=== PATIENT | male | born 1955 | race Caucasian/White ===

== ENCOUNTER 2022-05-29 14:26 | Emergency (ER) | payer MEDICARE, SELFPAY ==
--- NOTE | 2022-05-29 14:36 | ED.SKABFB ---
HPI - Skin/Abscess/Foreign Bdy General Chief complaint: Skin/Abscess/Foreign Body Stated complaint: Skin Sore Time Seen by Provider: 05/29/22 14:36 Source: patient and RN notes reviewed History of Present Illness HPI narrative: Patient is a 66-year-old male who presents the urgent care with complaints of an abscess to the upper right back. Patient states its been there at least 1 week and his lady friends tried to pop it . Patient states that they were able to express drainage from the area. States that it became more painful. Denies of any fevers, nausea or vomiting. No other acute complaints. No acute distress noted. Patient read the plan of care. Some parts of this dictation were generated by voice recognition software and may contain typographical and/or grammatical inaccuracies. Related Data Home Medications Medication Instructions Recorded Confirmed alprazolam 0.5 mg tablet 0.4 mg PO Q4-6H PRN Anxiety 05/29/22 05/29/22 oxycodone-acetaminophen 10 mg-325 1 tablet PO Q6-8H PRN Pain 05/29/22 05/29/22 mg tablet sildenafil 100 mg tablet 100 mg PO DAILY PRN Sexual Activity 05/29/22 05/29/22 Allergies Allergy/AdvReac Type Severity Reaction Status Date / Time No Known Allergies Allergy Unverified 05/29/22 14:44 Review of Systems Review of Systems: CONSTITUTIONAL: Denies fever, chills, or sweats. EYES: Denies visual changes, redness, or discharge. ENT: Denies rhinorrhea, congestion, sore throat, or otalgia. CARDIOVASCULAR: Denies chest pain, palpitations, or edema. RESPIRATORY: Denies cough or dyspnea. GASTROINTESTINAL: Denies abdominal pain, nausea, vomiting, or diarrhea. GENITOURINARY: Denies dysuria or hematuria. SKIN: Reports of an abscess to the right upper back MUSCULOSKELETAL: Denies back pain, joint pain, or myalgia. NEUROLOGIC: Denies headache, numbness, or weakness. All other systems reviewed are negative, except as documented in HPI. PMFSH Comments At the time of my signature, I reviewed and agree with the nursing past medical, surgical, social, and family history. There is no relevant family history pertinent to the patient complaint. Exam Narrative: GENERAL: This is a well-nourished, well-developed patient, in no apparent distress. HEAD: normocephalic, atraumatic. EYES: PERRL. Sclera clear/white. Vision is grossly intact. EARS: External ears normal, auditory canals clear and without drainage, TMs normal without perforation. Hearing grossly intact. NOSE: External nose normal with no obvious nasal discharge, nares without redness, no rhinorrhea. THROAT: Mucous membranes moist, posterior pharynx clear. NECK: Neck supple SKIN: 4.5 x 3 cm tender erythemic edematous mildly fluctuant abscess to the right upper back NEURO: awake, alert, and oriented to person, place and time. There were no obvious focal neurologic abnormalities. EXTREMITIES: No clubbing, cyanosis, or edema. Course Course Level of Care: Express Care Visit Vital Signs Vital signs: Vital Signs Temperature 98.2 F 05/29/22 14:39 Pulse Rate 87 05/29/22 14:39 Respiratory Rate 16 05/29/22 14:39 Blood Pressure 121/89 05/29/22 14:39 Pulse Oximetry 98 05/29/22 14:39 Oxygen Delivery Room Air 05/29/22 14:39 Temperature 98.2 F 05/29/22 14:39 Pulse Rate 87 05/29/22 14:39 Respiratory Rate 16 05/29/22 14:39 Blood Pressure 121/89 05/29/22 14:39 Pulse Oximetry 98 05/29/22 14:39 Oxygen Delivery Room Air 05/29/22 14:39 Reviewed MDM - Skin/Abscess/Foreign Bdy MDM Narrative Medical decision making narrative: Advised patient to complete the oral antibiotic regimen as prescribed. Be sure to eat and drink with the medication. Use a warm compress to the area for comfort. Continue your prescription medication as needed for pain. Do not try to pick or pop the area. Follow-up with your PCP within 2 to 5 days or for worsening symptoms or failure to improve. Patient did not wish to have the abscess drained at t
[2022-05-29 14:39] VITALS: BP 121/89; PULSE 87; RESP 16; TEMP 36.8; O2SAT 98
== END 2022-05-29 14:58 | disposition home or self-care (01) ==
PROVIDERS: Emergency Provider Nurse Practitioner Family
DX: L02.212 Cutaneous abscess of back [any part, except buttock and flank] (principal); F41.9 Anxiety disorder, unspecified
CPT/HCPCS: 99203; G0463

== ENCOUNTER 2024-09-29 11:34 | Emergency (ER) | payer MEDICARE, SELFPAY ==
[2024-09-29 11:45] VITALS: BP 141/85; PULSE 72; RESP 16; TEMP 36.7; O2SAT 100
--- OUTSIDE RECORDS SUMMARY | 2024-09-29 12:03 | XMS_ITS | Clinical Summary ---
Author Organization [facility] Address [address] [place] [address] Care Team Providers Care Car Salesman Name Role Phone Ayan Tse MD Primary Care Provider + Ayan Tse MD Unavailable [phone] Kadeem Davidson LPN Unavailable Unavailable Lor Harper RN Unavailable Unavailab Luz Pope RN Unavailable Kylah vailable Allergies No known active allergies Medications naloxone (NARCAN) 4 mg/actuation spray,non-aeros olIndications:O pioid use Administer 1 spray into affected nostril(s) as needed for opioid reversal 2 each 0 Active oxyCODONE-aceta minophen (PERCOCET) 10-325 mg per tabletIndicatio ns:Pain Take 1 tablet by mouth every 8 (eight) hours as needed for pain 90 tablet 1 Active LORazepam (ATIVAN) 0.5 mg tablet Take 1 tablet (0.5 mg total) by mouth every 6 (six) hours as needed for anxiety Active sildenafiL (VIAGRA) 100 mg tablet Take 1 tablet (100 mg total) by mouth daily as needed for erectile dysfunction Active albuterol HFA (PROVENTIL HFA,VENTOLIN HFA,PROAIR HFA) 90 mcg/actuation inhaler Inhale 2 puffs every 4 (four) hours as needed for wheezing 1 each 2 1 Active fluticasone propionate (FLONASE) 50 mcg/actuation nasal spray Administer 1 spray into each nostril daily 1 each 2 1 Active acetaminophen (TYLENOL) 325 mg tabletIndicatio ns:Pain Take 2 tablets (650 mg total) by mouth every 6 (six) hours 4 Active cholecalciferol (VITAMIN D-3) 2000 unit capsule Take 1 capsule (2,000 Units total) by mouth daily 4 02/12/20 25 Active enoxaparin (LOVENOX) 30 mg/0.3 mL syringeIndicati ons:Deep Vein Thrombosis Prevention Inject 0.3 mL (30 mg total) under the skin every 12 (twelve) hours 4 Active folic acid (FOLVITE) 1 mg tabletIndicatio ns:Folate Deficiency Take 1 tablet (1 mg total) by mouth daily for 1 dose 4 Active multivitamin with folic acid 400 mcg tablet Take 1 tablet by mouth daily 4 02/12/20 25 Active oxyCODONE (ROXICODONE) 10 mg tabletIndicatio ns:Pain Take 1 tablet (10 mg total) by mouth every 4 (four) hours as needed for pain for up to 20 doses 20 tablet 4 Active polyethylene glycol (MIRALAX) 17 gram/dose bulk powderIndicatio ns:constipation Take 17 g by mouth daily 4 Active Active Problems Problem Noted Date Diagnosed Date History of colonic polyps 09/19/2024 Herpes zoster 02/07/2024 Solitary pulmonary nodule 02/07/2024 Encounter for medication review 02/07/2024 Assessment & Plan (02/08/2024 1:07 PM CDT): Completed 01/22/[address] Ayan Munson Discharge planning issues 02/07/2024 Assessment & Plan (02/11/2024 1:41 PM CDT): 02/06 admitted went to surgery, 02/07 await PT/OT eval 02/08 - 02/10 Patient is medically stable for discharge, SW/CM updated. Discharge pending facility acceptance Fracture of tibia and fibula 02/06/2024 Assessment & Plan (02/11/2024 1:41 PM CDT): Orthopedic consult 02/06: OR (Ortho) IMN R tibial shaft fx, nonop R fibula shaft fx WBAT, Follow in 3 weeks for suture removal 02/08/2024 Xrays at 6 weeks Ok for DVT ppx follow up scheduled on 02/29/[address] Akbar located at [facility] 02/07 - 02/10: Regular diet, PT/OT, pain control, pending facility acceptance COPD with acute exacerbation 07/09/2021 Assessment & Plan (07/09/2021 10:13 AM BODY SHOP TECHNICIAN): No acute cardiopulmonary disease on chest x-ray, imaging personally reviewed. Symptoms mostly resolved overnight with a single dose of Solu-Medrol 125 mg, azithromycin, and albuterol nebs administered. Suspect that the clear sputum produced with cough is due to on postnasal drip as the same fluid has been produced from his nose for the past few days, can stop azithromycin and start Flonase. Wheezing significantly improved and the patient was weaned off of supplemental oxygen overnight. His nurse performed walking O2 study this morning and he was able to walk 60 ft with his SpO2 >90%. The patient feels well enough to go home so he was discharged with a 5 day course of prednisone 40 mg daily and refills for his albuterol inhaler along with a spacer provided prior to discharge. He was also instructed to follow-up with his PCP as soon as possible. Illiterate 07/09/2021 Acute respiratory failure with hypoxia (CMS/HCC) 07/09/2021 Family history of colon cancer 06/23/2021 Overview (06/23/2021): Added automatically from request for surgery [id number] Personal history of colonic polyps 06/23/2021 Overview (06/23/2021): Added automatically from request for surgery [id number] Encounter for screening colonoscopy 06/23/2021 Overview (06/23/2021): Added automatically from request for surgery [id number] Neck pain 01/08/2021 Adenomatous polyp of colon 10/25/2020 Alcohol dependence 10/25/2020 Assessment & Plan (02/10/2024 3:24 PM CDT): Ciwaa Thiamine Folate MVI Anxiety 10/25/2020 Assessment & Plan (02/08/2024 1:07 PM CDT): Chronic Home xanax 0.5 mg tid prn Blind left eye 10/25/2020 Chronic depression 10/25/2020 Chronic obstructive lung disease (CMS/HCC) 10/25 Assessment & Plan (02/08/2024 1:07 PM CDT): Chronic -albuterol prn Q 4 hours -no home oxygen therapy - Stable respirations on room air to 2L NC, wean as tolerated Dyspnea 10/25/2020 Essential hypertension 10/25/2020 Lumbar hernia 10/25/2020 Raised prostate specific antigen 10/25/2020 Tobacco user 10/25/2020 Assessment & Plan (02/08/2024 1:08 PM CDT): Chronic -nicotine patch Assessment & Plan (07/09/2021 10:06 AM BODY SHOP TECHNICIAN): Encouraged cessation, is considering attempting to quit smoking again. He said that he will request a prescription for nicotine patches from his PCP when he is ready to try again. Hyper reflexia 08/27/2020 Lateral epicondylitis of left elbow 02/27/2020 Chronic pain of right knee 10/23/2019 Chronic pain of right hip 10/23/2019 Long-term current use of opiate analgesic 2016 Chronic bilateral low back pain with bilateral s ciatica 08/12/2017 Lumbosacral spondylosis without myelopathy 08/12 Radiculopathy, lumbosacral region 08/12/2017 Spinal stenosis of lumbar re gion without neurogenic claudication 08/12/2017 Postlaminectomy syndrome, lumbar 08/12/2017 Cervicalgia 08/12/2017 Pain in joint involving multiple sites 7 Myalgia 08/12/2017 Primary osteoarthritis involving multiple joints 08/12/2017 Ascending aortic aneurysm (CMS/HCC) 02/03/2017 Resolved Problems Problem Noted Date Diagnosed Date Resolved Date Closed fracture of right tib ia and fibula, initial encounter 02/06/2024 02/07/2024 Encounters Date Type Department Care Team Description 09/19/[address] [facility] at [place] [address] [place] [address] Rekha Garcia 09/04/2024 9:50 AM BODY SHOP TECHNICIAN Lab [facility] [address] [place] [address] from Last 3 Months Immunizations Name Administration Dates Next Due Tdap 02/06/2024,02/08/2019 Surgical History Surgery Date Site/Laterality Comments BACK SURGERY Back surgery CATARACT EXTRACTION Cataract extraction COLONOSCOPY 03/23/2017 - 04/22/2017 Medical History Medical History Date Comments Chronic obstructive pulmonary disease (HCC) Aorta aneurysm (HCC) Hypertension Cervical spinal stenosis Pulmonary nodule Anxiety Tobacco abuse ETOH abuse Family History Medical History Relation Name Comments Leukemia Brother 2 Cancer -leukemi a; Cause of : Cancer -leukemia Car Accident Father MVA; Cause of D eath: MVA Heart failure Mother Heart failure; Cause of : Heart failure Hypertension Mother Hypertension; Relation Name Status Comments Brother 1 Brother 2 Father Mother Social History Tobacco Use Types Packs/Day Years Used Date Smoking Tobacco: Every Day Cigarettes 2 56.1 Started: 1968 Smokeless Tobacco: Never Tobacco Cessation:Ready to Q uit: No; Counseling Given: No Alcohol Use Standard Drinks/Week Comments Yes 24 (1 standard drink = 0.6 oz pu re alcohol) fridays and saturdays [facility] Utilities Answer Date Recorded In the past 12 months has e [employer], oil, or water [employer] threatened to shut off services in your home? No 02/07/2024 Humiliation, Afraid, Rape, and Kick questionnair e Answer Date Recorded Within the last year, have y ou been afraid of your partner or ex-partner? No 02/07/2024 Within the last year, have y ou been humiliated or emotionally abused in other ways by your partner or ex-partner? No Within the last year, have y ou been kicked, hit, slapped, or otherwise physically hurt by your partner or ex-partner? No 02/07/2024 Within the last year, have y ou been raped or forced to have any kind of sexual activity by your partner or ex-partner? No 02/07/2024 Social Connection and Isolat ion Panel [NHANES] Answer Date Recorded In a typical week, how many times do you talk on the phone with family, friends, or neighbors? More than three times a week 02/07/2024 How often do you get togethe r with friends or relatives? More than three times a week 02/07/2024 How often do you attend chur or judaism services? 1 to 4 times per year 02/07/2024 Do you belong to any clubs o r organizations such as mormon groups, unions, fraternal or athletic groups, or school groups? Yes 02/07/2024 How often do you attend meet ings of the clubs or organizations you belong to? More than 4 times per year 02/07/2024 Are you , , di vorced, , never , or living with a partner? 02/07/2024 AUDIT-C Answer Date Recorded Q1: How often do you have a drink containing alc ohol? Monthly or less 02/07/2024 Q2: How many drinks containi ng alcohol do you have on a typical day when you are drinking? 1 or 2 02/07/2024 Q3: How often do you have si x or more drinks on one occasion? Never 02/07/2024 Overall Financial Resource Strain (CARDIA) Answe r Date Recorded How hard is it for you to pa y for the very basics like food, housing, medical care, and heating? Somewhat hard 02/07/2024 [facility] - Occupational Stress Questionnaire Answer Date Recorded Do you feel stress - tense, restless, nervous, or anxious, or unable to sleep at night because your mind is troubled all the time - these days? Not at all 02/07/2024 Exercise Vital Sign Answer Date Recorde d On average, how many days pe r week do you engage in moderate to strenuous exercise (like a brisk walk)? 7 days 02/07/2024 On average, how many minutes do you engage in exercise at this level? 90 min 02/07/2024 Hunger Vital Sign Answer Date Recorded Within the past 12 months, y ou worried that your food would run out before you got the money to buy more. Sometimes true Within the past 12 months, t he food you bought just didn't last and you didn't have money to get more. Never true PRAPARE - Transportation Answer Date Re corded In the past 12 months, has l ack of transportation kept you from medical appointments or from getting medications? No 01/21 In the past 12 months, has l ack of transportation kept you from meetings, work, or from getting things needed for daily living? No 02/07/2024 Housing Stability Vital Sign Answer Seferino e Recorded In the last 12 months, was t here a time when you were not able to pay the mortgage or rent on time? No 02/07/2024 In the past 12 months, how m any times have you moved where you were living? 0 02/07/2024 At any time in the past 12 m onths, were you homeless or living in a chcf (including now)? No 02/07/2024 Personal Safety Answer Date Recorded Have you ever been in or are you currently in a harmful physical or emotional relationship or is someone making you feel afraid or unsafe? Denies 02/07/2024 Sex and Gender Information Value Date Recorded Sex Assigned at Not on file Legal Sex Male 12:54 AM BODY SHOP TECHNICIAN Gender Identity Not on file Sexual Orientation Not on file Obstetrics History Last Filed Vital Signs Vital Sign Reading Time Taken Comments Blood Pressure 138/85 02/11/2024 12:00 PM CDT Pulse 90 02/11/2024 12:00 PM CDT Temperature 36.6 C (97.9 F) 02/11/2024 12:00 PM CDT Respiratory Rate 16 02/11/2024 12:00 PM CDT Oxygen Saturation 97% 02/11/2024 11:34 AM CDT Inhaled Oxygen Concentration - - Weight 69.9 kg (154 lb 3.2 oz) 02/09/2024 12:05 PM CDT Height 167.6 cm (5' 6 ) 02/06/2024 10:40 PM CDT Body Mass Index 24.89 02/06/2024 10:40 PM CDT Plan of Treatment Upcoming Encounters Date Type Department Care Team (Late st Contact Info) Description 04/03/2025 9:30 AM CDT Hospital Encounter [facility] [address] [place] [address] Fran Guerrier MD [address] [place] [address] 04/03/2025 9:30 AM CDT - 04/03/2025 10:00 AM CDT Surgery [facility] [address] [place] [address] Fran Guerrier MD [address] [place] [address] COLONOSCOPY Scheduled Procedures Name Priority Associated Diagnoses Date/Ti me COLONOSCOPY Encounter for screening colonoscopy History of colonic polyps Family history of colon cancer 04/03/2025 9:30 AM CDT Health Maintenance Due Date Last Done Comments Hepatitis C Screening 1955 Hepatitis B Screening 1974 Zoster Vaccine (1 of 2) 2006 Pneumococcal vaccine 65+ (2 of 2 - PCV) 09/06/2009 09/06/2008 Depression Screening 09/13/2018 09/13/2017 Abdominal Aortic Aneurysm (A AA) Screen 2021 06/04/2018, 02/02/2017 Well Visit 65+ 2021 Influenza Vaccine (#1) 2024 05/23/2015 Lung Cancer Screening 09/16/2024 09/16/2023, 023 Fall Risk Assessment 02/10/2025 02/11/2024 Prostate Cancer Screening-PSA 09/04/2026, 08/30/2023, 09/01/2022, Additional history exists Colon Cancer Screening-Colonoscopy 10/20/2031 10/20/2021, 03/24/2017, 06/04/2014, Additional history exists DTaP/Tdap/Td Vaccine (4 - Td or Tdap) 02/05/2034 02/06/2024, 02/08/2019, 09/23/2015 Colon Cancer Screening-CT Colonography Discontinued 10/20/2021, 03/24/2017, 06/04/2014, Additional history exists Colon Cancer Screening-DNA Stool Discontinued 10/20/2021, 03/24/2017, 06/04/2014, Additional history exists Colon Cancer Screening-FIT Discontinued 10/20, 03/24/2017, 06/04/2014, Additional history exists Colon Cancer Screening-Sigmoidoscopy Discontinued 10/20/2021, 03/24/2017, 06/04/2014, Additional history exists Medical Devices Implanted Type Area Motor Inspection Mechanic Device Identifier Shelf Expiration Date Model / Serial / Lot Plate Right: Mandible Bb Left: Cheek Synthes Nail Im Tibial Ti Tn Advanced [id number] 04.043.135s - [id number] Implanted:Qty: 1 on 02/07/2024 by Jayden Akbar MD at [facility] Right: Tibia Synthes I 05/22/2033 04.043. 135 S / / [id number] Synthes Screw Bone Locking Cannulated Femoral Threaded 5.0x32mm 04.045.332s - [id number] Implanted:Qty: 1 on 02/07/2024 by Jayden Akbar MD at [facility] Right: Tibia Synthes I 04.045. 332 S / / Synthes Screw Locking Threaded 5.0x38mm 04.045.338s - [id number] Implanted:Qty: 1 on 02/07/2024 by Jayden Akbar MD at [facility] Right: Tibia Synthes I 04.045. 338 S / / Synthes Screw Bone Locking Cannulated Femoral Proximal Full Thread Light Green 5.0x36mm Titanium 04.045.036 - [id number] Implanted:Qty: 1 on 02/07/2024 by Jayden Akbar MD at [facility] Right: Tibia Synthes I 04.045. 036 / / Synthes Screw Bone Locking Cannulated Femoral Threaded 5.0x36mm 04.045.336s - [id number] Implanted:Qty: 1 on 02/07/2024 by Jayden Akbar MD at [facility] Right: Tibia Synthes I 04.045. 336 S / / Synthes Screw Locking Threaded 5.0x68mm 04.045.368s - [id number] Implanted:Qty: 1 on 02/07/2024 by Jayden Akbar MD at [facility] Right: Tibia Synthes I 04.045. 368 S / / Procedures Procedure Name Priority Date/Time Associated Diagnosis Comments EGFR Routine 09/04/2024 10:06 AM BODY SHOP TECHNICIAN DIFFERENTIAL AUTO Routine 09/04/2024 10: 06 AM BODY SHOP TECHNICIAN LIPID PANEL Routine 09/04/2024 10:06 AM BODY SHOP TECHNICIAN COMPREHENSIVE METABOLIC PANEL Routine 09/04/2024 10:06 AM BODY SHOP TECHNICIAN TESTOSTERONE, TOTAL AND FREE, SERUM Routine 09/04/2024 10:06 AM BODY SHOP TECHNICIAN CBC WITH AUTO DIFFERENTIAL Routine 09/04/2024 10:06 AM BODY SHOP TECHNICIAN VITAMIN D 25 HYDROXY Routine 09/04/2024 10:06 AM BODY SHOP TECHNICIAN TSH Routine 09/04/2024 10:06 AM BODY SHOP TECHNICIAN PSA SCREEN Routine 09/04/2024 10:06 AM BODY SHOP TECHNICIAN URINALYSIS AND REFLEX TO MICROSCOPIC AND CULTURE Routine 09/04/2024 10:06 [address] [address] LUNG CANCER SCREENING Schedule Routine, Read Routine (OP Routine) 09/16/2023 1:08 PM BODY SHOP TECHNICIAN Personal history of nicotine dependence COLONOSCOPY 10/20/2021 8:[address] [employer]OP TE[address]ICIAN CT ABDOMEN PELVIS W CONTRAST ED 06/04/2018 12:21 PM CDT from Last 3 Months or Most Recently Relevant to Health Maintenance Results * eGFR (09/04/2024 10:06 AM BODY SHOP TECHNICIAN) eGFR >90 >=60 mL/min/1. 73 m2 Comment: Interpretive Data Reference Interval Normal >/= 90 mL/min/1.73m2 Mildly decreased* 60 - 89 mL/min/1.73m2 Mildly to moderately decreased 45 - 59 mL/min/1.73m2 Moderately to severely decreased 30 - 44 mL/min/1.73m2 Severely decreased 15 - 29 mL/min/1.73m2 Kidney Failure < 15 mL/min/1.73m2 *Relative to young adult level Estimated glomerular filtration rate is determined by the 2020 CKD-EPI equation recommended by the National Kidney Foundation (A Unifying Approach to GFR Estimation: Recommendations of the NKF-ASK Task Force on Reassessing the Inclusion of Race in Diagnosing Kidney Disease, JASN 2020). The CKD-EPI equation should not be used for patients with unstable renal function and has not been validated in children and those over 70. Current interpretive data was last reviewed 2021. Blood 09/04/2024 10:0 6 AM BODY SHOP TECHNICIAN 09/04/2024 10:13 AM BODY SHOP TECHNICIAN us Ayan Tse MD LAB BLOOD ORDERABLES Fin al Result [facility] ([place]) [address] [place] [address] * Differential, auto (09/04/2024 10:06 AM BODY SHOP TECHNICIAN) Neutrophil abs 3.7 1.5 - 6.5 K/cumm Imm gran abs 0.0 0.0 - 0.1 K/cumm [facility] ([place]) Lymphocyte abs 2.8 0.8 - 3.3 K/cumm [facility] ([place]) Monocyte abs 0.6 0.2 - 0.8 K/cumm [facility] ([place]) Eosinophil abs 0.2 0.0 - 0.5 K/cumm [facility] ([place]) Basophil abs 0.0 0.0 - 0.1 K/cumm [facility] ([place]) Neutrophil pct 50.8 % [facility] ([place]) Comment: Interpretive Data Percent cell count reference ranges are not reported, since discordance with absolute values may lead to misinterpretation of CBC data. Current Interpretive Data was last revised on 2017. Imm gran pct 0.1 % [facility] ([place]) Comment: Interpretive Data Percent cell count reference ranges are not reported, since discordance with absolute values may lead to misinterpretation of CBC data. Current Interpretive Data was last revised on 2017. Lymphocyte pct 38.3 % [facility] ([place]) Comment: Interpretive Data Percent cell count reference ranges are not reported, since discordance with absolute values may lead to misinterpretation of CBC data. Current Interpretive Data was last revised on 2017. Monocyte pct 7.7 % [facility] ([place]) Comment: Interpretive Data Percent cell count reference ranges are not reported, since discordance with absolute values may lead to misinterpretation of CBC data. Current Interpretive Data was last revised on 2017. Eosinophil pct 2.5 % [facility] ([place]) Comment: Interpretive Data Percent cell count reference ranges are not reported, since discordance with absolute values may lead to misinterpretation of CBC data. Current Interpretive Data was last revised on 2017. Basophil pct 0.6 % [facility] ([place]) Comment: Interpretive Data Percent cell count reference ranges are not reported, since discordance with absolute values may lead to misinterpretation of CBC data. Current Interpretive Data was last revised on 2017. Blood 09/04/2024 10:0 6 AM BODY SHOP TECHNICIAN 09/04/2024 10:13 AM BODY SHOP TECHNICIAN Ayan Tse MD LAB BLOOD ORDERABLES Fin al Result [facility] ([place]) [address] [place] [address] * PSA screen (09/04/2024 10:06 AM BODY SHOP TECHNICIAN) PSA-Total 2.28 <=5.40 ng/mL Comment: Interpretive Data AGE SEX REFERENCE INTERVAL 0 minutes-150 years Female None 0 minutes-49 years Male None 50-59 years Male 0-3.90 60-69 years Male 0-5.40 70-79 years Male 0-6.20 80-150 years Male 0-6.20 The Jessica PSA Total assay procedure was used. Results from different manufacturers or methods may not be comparable. Serial testing should be performed using the same method. Current interpretive data last revised 21. Blood 09/04/2024 10:0 6 AM BODY SHOP TECHNICIAN 09/04/2024 10:13 AM BODY SHOP TECHNICIAN us Ayan Tse MD LAB BLOOD ORDERABLES Fin al Result [facility] ([place]) [address] [facility] [place] [address] * (ABNORMAL) Urinalysis reflex to microscopic and culture Urine (09/04/2024 10:06 AM BODY SHOP TECHNICIAN) Color, ur Yellow Yellow Clarity, ur Clear Clear [facility] ([place]) Specific gravity, ur 1.020 1.003 - 1.030 [facility] ([place]) pH, urine 5.5 [facility] ([place]) Comment: Interpretive Data U rine pH is affected by diet, medications, systemic acid-base disturbances, and renal tubular function. pH may affect urinary stone formation. For example, urine pH below 6.0 may help reduce the tendency for calcium phosphate stones and pH greater than 6.0 may reduce the tendency for uric acid stone formation. Source: [facility] shopp Current Interpretive Data was last revised on 2017 Protein, ur ql Trace Negative [facility] ([place]) Glucose, ur ql Negative Negative [facility] ([place]) Ketones, ur Negative Negative [facility] ([place]) Bilirubin, ur Negative Negative [facility] ([place]) Blood, ur Negative Negative [facility] ([place]) Urobilinogen, ur 2.0(A) <2.0 mg/dL [facility] ([place]) Nitrite, ur Negative Negative [facility] ([place]) Leukocyte esterase, ur Negative Negative [facility] ([place]) UA reflex comment Reflex conditions for microscopic UA and culture not met. [facility] ([place]) Urine 09/04/2024 10:0 6 AM BODY SHOP TECHNICIAN 09/04/2024 10:46 AM BODY SHOP TECHNICIAN us Ayan Tse MD LAB MICROBIOLOGY - GENER AL ORDERABLES Final Result [facility] ([place]) [address] [facility] [facility] [place] [address] * CBC with auto differential (09/04/2024 10:06 AM BODY SHOP TECHNICIAN) WBC 7.2 3.8 - 9.9 K/cumm Hgb 14.8 13.0 - 17.5 g/dL [facility] ([place]) Hct 44.4 38.9 - 50.3 % [facility] ([place]) Plt 206 150 - 400 K/cumm [facility] ([place]) MPV 10.7 9.1 - 12.3 fL [facility] ([place]) RBC 4.67 4.30 - 5.80 M/cumm [facility] ([place]) MCV 95.1 81.3 - 96.4 fL [facility] ([place]) MCH 31.7 27.1 - 33.3 pg [facility] ([place]) MCHC 33.3 32.3 - 35.7 g/dL [facility] ([place]) RDW CV 13.1 11.1 - 14.9 % [facility] ([place]) RDW SD 45.9 35.7 - 48.1 fL [facility] ([place]) NRBC abs 0.00 0.00 - 0.01 K/cumm [facility] ([place]) Blood 09/04/2024 10:0 6 AM BODY SHOP TECHNICIAN 09/04/2024 10:13 AM BODY SHOP TECHNICIAN us Ayan Tse MD LAB BLOOD ORDERABLES Fin al Result [facility] ([place]) [address] [facility] [place] [address] * (ABNORMAL) Vitamin D 25 hydroxy (09/04/2024 10:06 AM BODY SHOP TECHNICIAN) Vitamin D 25-OH 89(H) 30 - 80 ng/mL Blood 09/04/2024 10:0 6 AM BODY SHOP TECHNICIAN 09/04/2024 10:13 AM BODY SHOP TECHNICIAN us Ayan Tse MD LAB BLOOD ORDERABLES Fin al Result [facility] ([place]) [address] [facility] [place] [address] * Testosterone, Total and Free, Serum (09/04/2024 10:06 AM BODY SHOP TECHNICIAN) Testosterone 816 240 - 950 ng/dL [place] [facility] Comment: ADDITIONAL INFORMATION Testing performed by Liquid Chromatography-Tandem Mass Spectrometry (LC-MS/MS). This test was developed and its performance characteristics determined by [facility] in a manner consistent with CLIA requirements. This test has not been cleared or approved by the U.S. Food and Drug Administration. Test Performed by: [facility] - [address] [address] Vehicle Detailer: Kandace Nguyen Ph.D.; CLIA# [id number] Testosterone, free 11.4 3.47 - 13.0 ng/dL [facility] ([place]) Comment: ADDITIONAL INFORMATION This test was developed and its performance characteristics determined by [facility] in a manner consistent with CLIA requirements. This test has not been cleared or approved by the U.S. Food and Drug Administration. Blood 09/04/2024 10:0 6 AM BODY SHOP TECHNICIAN 09/04/2024 10:13 AM BODY SHOP TECHNICIAN Narrative ERA BRUNER (FREDI) - 09/09/2024 3:44 PM BODY SHOP TECHNICIAN [phone] us Ayan Tse MD LAB BLOOD ORDERABLES Fin al Result ERA SMITH) 1 [facility] [place] [address] [place] ref [facility] * (ABNORMAL) TSH (09/04/2024 10:06 AM BODY SHOP TECHNICIAN) Thyroid Stimulating Hormone 4.75(H) 0.30 - 4.20 mcIUnit/mL Blood 09/04/2024 10:0 6 AM BODY SHOP TECHNICIAN 09/04/2024 10:13 AM BODY SHOP TECHNICIAN us Ayan Tse MD LAB BLOOD ORDERABLES Fin al Result ERA BRUNER (FREDI) 1 [facility] [place] [address] * (ABNORMAL) Lipid panel (09/04/2024 10:06 AM BODY SHOP TECHNICIAN) Cholesterol 165 30 - 199 mg/dL Comment: Interpretive Data Ages < or = 19 years Acceptable: <170 mg/dL Borderline high: 170-199 mg/dL High: >or= 200 mg/dL Ages > or = 20 years Desirable: <200 mg/dL Borderline high: 200-239 mg/dL High: >or= 240 mg/dL Literature References: 1. Expert Panel on Integrated Guidelines for Cardiovascular Health and Risk Reduction in Children and Adolescents. Pediatrics 2011;128:S213 2. NCEP Expert Panel. Circulation 2004;110:227 Current Interpretive Data was last revised on 2018. Triglycerides 98 <=149 mg/dL EAR BRUNER (FREDI) Comment: Interpretive Data Ages < or = 9 years Acceptable: <75 mg/dL Borderline high: 75-99 mg/dL High: >or= 100 mg/dL Ages 10 to 20 years Acceptable: <90 mg/dL Borderline high: 90-129 mg/dL High: >or= 130 mg/dL Ages > or = 20 years Desirable: <150 mg/dL Borderline high: 150-199 mg/dL High: 200-499 mg/dL Very high: >or= 499 mg/dL Literature References: 1. Expert Panel on Integrated Guidelines for Cardiovascular Health and Risk Reduction in Children and Adolescents. Pediatrics 2011;128:S213 2. NCEP Expert Panel. Circulation 2004;110:227 Current Interpretive Data was last revised on 2018. HDL 35(L) >=40 mg/dL ERA AM H (FREDI) Comment: Interpretive Data Ages < or = 19 years Acceptable: >45 mg/dL Borderline low: 40-45 mg/dL Low: <40 mg/dL Ages > or = 20 years Desirable: >or= 60 mg/dL Low: <40 mg/dL Literature References: 1. Expert Panel on Integrated Guidelines for Cardiovascular Health and Risk Reduction in Children and Adolescents. Pediatrics 2011;128:S213 2. NCEP Expert Panel. Circulation 2004;110:227 Current Interpretive Data was last revised on 2018. LDL, calculated 112 <=129 mg/dL ERA BRUNER (FREDI) Comment: Interpretive Data Ages < or = 19 years Acceptable: <110 mg/dL Borderline high: 110-129 mg/dL High: >or= 130 mg/dL Ages > or = 20 years Optimal: <100 mg/dL Near optimal: 100-129 mg/dL Borderline high: 130-159 mg/dL High: >160 mg/dL Calculated using the Coy LDL-C estimating equation. This equation was implemented on 2024. Prior to this date LDL-C was estimated using the Friedewald equation. Literature References: 1. Expert Panel on Integrated Guidelines for Cardiovascular Health and Risk Reduction in Children and Adolescents. Pediatrics 2011;128:S213 2. NCEP Expert Panel. Circulation 2004;110:227 3. Coy Mendoza et al. MARIANO Cardiol. 2020 December 21;5(5):540-548. doi: 10.1001/jamacardio.2020.0013 Current Interpretive Data was last revised on 2024. Non-HDL Cholesterol 130 mg/dL ERA BRUNER (FREDI) Comment: Interpretive Data Ages < or = 19 years Acceptable: <120 mg/dL Borderline high: 120-144 mg/dL High: >145 mg/dL Ages > or = 20 years When triglycerides are >200 mg/dL, Non-HDL cholesterol is a secondary target of therapy with treatment goals that are 30 mg/dL greater than the LDL cholesterol target. Literature References: 1. Expert Panel on Integrated Guidelines for Cardiovascular Health and Risk Reduction in Children and Adolescents. Pediatrics 2011;128:S213 2. NCEP Expert Panel. Circulation 2004;110:227 Current Interpretive Data was last revised on 2018. Chol/HDL ratio 5 AMIRA BRUNER (FREDI) Blood 09/04/2024 10:0 6 AM BODY SHOP TECHNICIAN 09/04/2024 10:13 AM BODY SHOP TECHNICIAN us Ayan Tse MD LAB BLOOD ORDERABLES Fin al Result [facility] (FREDI) 1 [facility] [place] [address] * (ABNORMAL) Comprehensive metabolic panel (09/04/2024 10:06 AM BODY SHOP TECHNICIAN) Sodium 141 135 - 145 mmol/L Potassium, pl 4.4 3.3 - 4.9 mmol/L [facility] (FREDI) Chloride 104 97 - 110 mmol/L [facility] (FREDI) CO2 27 22 - 32 mmol/L [facility] (FREDI) Anion gap 10 2 - 15 mmol/L [facility] (FREDI) BUN 9 6 - 25 mg/dL [facility] (FREDI) Creatinine 0.91 0.80 - 1.30 mg/dL [facility] (FREDI) Glucose 108 70 - 199 mg/dL [facility] (FREDI) Comment: Interpretive Data Fasting glucose >/= 126 mg/dl is diagnostic for diabetes. Fasting is defined as no caloric intake for at least 8 hours. Fasting glucose between 100 mg/dl to 125 mg/dl is diagnostic of prediabetes. In a patient with classic symptoms of hyperglycemia or hyperglycemic crisis, a random glucose >/= 200 mg/dl is diagnostic for diabetes. In the absence of unequivocal hyperglycemia, results should be confirmed by repeat testing. The classification and Diagnosis of Diabetes Diabetes Care 202; 46: S19-S40. Current interpretive data was last revised 2022. Calcium 9.1 8.5 - 10.3 mg/dL [facility] (FREDI) Bilirubin, total 0.5 0.1 - 1.2 mg/dL [facility] (FREDI) Protein, pl 6.5 6.5 - 8.5 g/dL [facility] (FREDI) Albumin 4.0 3.5 - 5.0 g/dL [facility] (FREDI) Alk phos 100 40 - 130 Units/L [facility] (FREDI) ALT <5(L) 7 - 55 Units/L [facility] (FREDI) AST 11 10 - 50 Units/L [facility] (FREDI) Blood 09/04/2024 10:0 6 AM BODY SHOP TECHNICIAN 09/04/2024 10:13 AM BODY SHOP TECHNICIAN us Ayan Tse MD LAB BLOOD ORDERABLES Fin al Result ERA BRUNER (MOODY) 1 [facility] [place] [address] * CT Lung Cancer Screening (09/16/2023 1:08 PM BODY SHOP TECHNICIAN) Anatomical Region Laterality Modality Chest N/A Computed Tomogra phy 09/16/2023 5:27 PM BODY SHOP TECHNICIAN Narrative 09/16/2023 5:33 PM BODY SHOP TECHNICIAN EXAM DESCRIPTION: Lung cancer screening CT REASON FOR STUDY: Screening CT of the chest in a current smoker with a 108 pack year smoking history. Additional history: None. TECHNIQUE: Low dose CT scan of the chest was performed without intravenous contrast using helical scanning technique. The exam extends from the lung apices through the lung bases. Automatic exposure control was used as a dose optimization technique. NOTE: This study was performed for the specific purposes of lung cancer screening and is not an alternative to diagnostic chest CT. RADIATION DOSE: CT dose index volume (CTDIvol) = 1.2 mGy COMPARISON: 08/31/2022 FINDINGS: SMOKING RELATED LUNG DISEASE: [id number] emphysema. LUNG NODULES: 1. Unchanged 5 mm nodule right lower lobe on image 213 series 3. 2. Unchanged linear nodule in the right lower lobe measuring 5 mm average dimension on image 206. CORONARY ARTERY CALCIFICATION: Moderate OTHER: 10 mm cyst in the liver. 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 No pericardial effusion. Heart size is normal. Chest wall appears normal. No lymphadenopathy. No suspicious osseous lesion. IMPRESSION: Stable small pulmonary nodules. No suspicious nodule. Lung-RADS category 2: Benign appearance or behavior. Recommendation: Low dose Screening CT of chest in 12 months. THIS IS AN ELECTRONICALLY VERIFIED FINAL REPORT 09/16/2023 5:33 PM - Electronically signed by Flaquito Wilson M.D. KN: EDITA Report ID: [id number] Reading Location: [id number] Procedure Note Flaquito Wilson MD - 09/16/2023 EXAM DESCRIPTION: Lung cancer screening CT REASON FOR STUDY: Screening CT of the chest in a current smoker with a108 pack year smoking history. Additional history: None. TECHNIQUE: Low dose CT scan of the chest was performed without intravenous contrast using helical scanning technique. The exam extends from the lung apices through the lung bases. Automatic exposure control was used as adose optimization technique. NOTE: This study was performed for the specific purposes of lung cancer screening and is not an alternative to diagnostic chest CT. RADIATION DOSE: CT dose index volume (CTDIvol) = 1.2 mGy COMPARISON: 08/31/2022 FINDINGS: SMOKING RELATED LUNG DISEASE: [id number] emphysema. LUNG NODULES: 1. Unchanged 5 mm nodule right lower lobe on image 213 series 3. 2. Unchanged linear nodule in the right lower lobe measuring 5 mmaverage dimension on image 206. CORONARY ARTERY CALCIFICATION: Moderate OTHER: 10 mm cyst in the liver. There is dilation of the ascendingaorta measuring 4.5 cm diameter, unchanged from prior. No pericardial effusion. Heart size is normal. Chest wall appears normal. No lymphadenopathy. No suspicious osseous lesion. IMPRESSION: Stable small pulmonary nodules. No suspicious nodule. Lung-RADS category 2: Benign appearance or behavior. Recommendation: Low dose Screening CT of chest in 12 months. THIS IS AN ELECTRONICALLY VERIFIED FINAL REPORT 09/16/2023 5:33 PM - Electronically signed by Flaquito Wilson M.D. KN: EDITA Report ID: [id number] Reading Location: [id number] Ayan Tse MD IMG CT PROCEDURES Final Result * COLONOSCOPY (10/20/2021 8:42 AM BODY SHOP TECHNICIAN) Anatomical Region Laterality Modality Other Narrative Procedure Note Fran Guerrier MD - 10/20/2021 8:42 AM CST [facility] Patient Name: Vicente Lr Procedure Date: 10/20/2021 8:42 AM Date of : 1955 Admit Type: Outpatient Age: 66 Gender: Male Attending MD: Fran Guerrier M.D. Room: [facility] ENDOSCOPY ROOM 1 Note Status: Finalized Patient Profile: This is a 66 year old male. His brother had colon cancer. He has history of polyps. Procedure: Colonoscopy Indications: Screening in patient at increased risk: Familyhistory of 1st-degree relative with colorectal cancerbefore age 60 years, High risk colon cancer surveillance: Personal history of colonic polyps, Lastcolonoscopy 5 years ago Referring MD: Ayan Tse M.D. Providers: Fran Guerrier M.D. Impression: - One 5 mm polyp at the hepatic flexure, removedwith a jumbo cold forceps. Resected and retrieved. - Four 3 to 4 mm polyps in the sigmoid colon and in the descending colon, removed with a jumbo cold forceps. Resected and retrieved. - Internal hemorrhoids. Recommendation: - Await pathology results. - Repeat colonoscopy in 3 years for screeningpurposes. - Continue present medications. Medicines: Monitored Anesthesia Care Complications: No immediate complications. Estimated Blood Loss: Estimated blood loss: none. Procedure: Pre-Anesthesia Assessment: - Prior to the procedure, a History and Physicalwas performed, and patient medications and allergieswere reviewed. The patient's tolerance of previous anesthesia was also reviewed. The risks andbenefits of the procedure and the sedation options and risks were discussed with the patient. All questions were answered, and informed consent was obtained. Prior Anticoagulants: The patient has taken noanticoagulant or antiplatelet agents. ASA Grade Assessment: III -A patient with severe systemic disease. Afterreviewing the risks and benefits, the patient was deemed in satisfactory condition to undergo the procedure. The benefits, risks and alternatives of theprocedure and sedation were discussed and informed consentwas obtained. All questions were answered. Please referto the signed informed consent document in the medical record. The scope was passed under direct vision.The Pediatric Colonoscope PCF-H190L [id number] was introduced through the anus and advanced to the the cecum, identified by appendiceal orifice andileocecal valve. The bowel preparation used was Miralax via extended prep with split dose instruction. Thebowel preparation used was bisacodyl tablets via extended prep with split dose instruction. The quality ofthe bowel preparation was excellent. Bowel prep was administered using a split dose. Findings: The perianal and digital rectal examinations were normal. The cecum appeared normal. The terminal ileum was normal. A 5 mm polyp was found in the hepatic flexure. The polyp was sessile. The polyp was removed with a jumbo cold forceps. Resection andretrieval were complete. The transverse colon appeared normal. Four sessile polyps were found in the sigmoid colon and descending colon. The polyps were 3 to 4 mm in size. These polyps were removedwith a jumbo cold forceps. Resection and retrieval were complete. Internal hemorrhoids were found during retroflexion. The hemorrhoids were small. Electronically signed by Fran Guerrier M.D. Fran Guerrier M.D. 10/20/2021 9:11:27 AM Number of Addenda: 0 Note Initiated On: 10/20/2021 8:42 AM Procedure Code(s): --- Professional --- 55154, Colonoscopy, flexible; with biopsy, single or multiple Diagnosis Code(s): --- Professional --- Z80.0, Family history of malignant neoplasm of digestive organs Z86.010, Personal history of colonic polyps K64.8, Other hemorrhoids D12.3, Benign neoplasm of transverse colon (hepatic flexure orsplenic flexure) D12.5, Benign neoplasm of sigmoid colon D12.4, Benign neoplasm of descending colon CPT copyright 2020 [employer]. All rights reserved. The codes documented in this report are preliminary and upon plumbing contractor reviewmay be revised to meet current compliance requirements. Recognized by the [employer] for promoting quality in endoscopy us Fran Guerrier MD ENDOSCOPY PROCEDURES Final Result * CT Abdomen Pelvis W Contrast (06/04/2018 12:21 PM CDT) Anatomical Region Laterality Modality Body N/A Computed Tomogra phy 06/04/2018 12:2 4 PM CDT Impressions 06/04/2018 12:30 PM CDT 1. FINDINGS CONSISTENT WITH COLITIS INVOLVING DESCENDING SIGMOID COLON. COLITIS MAY BE INFECTIOUS, INFLAMMATORY, OR ISCHEMIC. 2. SMALL LEFT LOBE HEPATIC CYST. SMALL HYPERDENSE FOCUS LEFT HEPATIC LOBE, TOO SMALL TO CHARACTERIZE. 3. SMALL HYPODENSE FOCUS RIGHT KIDNEY, TOO SMALL TO CHARACTERIZE. 4. PROSTATOMEGALY. 5. URINARY BLADDER WALL THICKENING. Electronically signed by: Marcelino Munson 06/04/2018 12:[address] ABDOMEN PELVIS W CONTRAST HISTORY: ABDOMINAL PAIN. Left lower quadrant pain. TECHNIQUE: Helical CT scan abdomen and pelvis obtained with intravenous contrast. 100 mL Optiray 320. No oral contrast as requested. COMPARISON: 05/10/2005. FINDINGS: Evidence of mild hepatic steatosis. Small left lobe hepatic cyst on axial and #11 measures 11 mm. A small adjacent hypodense focus is seen on image #12 which measures 8 mm. 2 small to characterize. This may represent cyst. Gallbladder unremarkable. Spleen size within the normal range. No pancreatic mass identified. For the kidneys, no hydronephrosis. Very small hypodense focus lower pole right kidney, too small to characterize. Degenerative disc disease L4-L5 and L5-S1. No adrenal mass identified. No small bowel dilatation identified. Evaluation the gastrointestinal tract is limited without oral contrast. Mural thickening involving the descending and sigmoid colon. This is most consistent with colitis. No evidence of acute appendicitis. Prostate gland is enlarged, the transverse dimension of 5.7 cm. The urinary bladder is underdistended. Diffuse wall thickening urinary bladder, appears mild to moderate, but this is eccentric by underdistention. Atherosclerotic changes abdominal aorta and iliac arteries. Procedure Note Marco Bowman MD - 06/04/2018 CT ABDOMEN PELVIS W CONTRAST HISTORY: ABDOMINAL PAIN. Left lower quadrant pain. TECHNIQUE: Helical CT scan abdomen and pelvis obtained with intravenous contrast. 100 mL Optiray 320. No oral contrast as requested. COMPARISON: 05/10/2005. FINDINGS: Evidence of mild hepatic steatosis. Small left lobe hepatic cyst on axial and #11 measures 11 mm. A small adjacent hypodense focus is seen on image #12 which measures 8 mm. 2 small to characterize. This may represent cyst. Gallbladder unremarkable. Spleen size within the normal range. No pancreatic mass identified. For the kidneys, no hydronephrosis. Very small hypodense focus lower pole right kidney, too small to characterize. Degenerative disc disease L4-L5 and L5-S1. No adrenal mass identified. No small bowel dilatation identified. Evaluation the gastrointestinal tract is limited without oral contrast. Mural thickening involving the descending and sigmoid colon. This is most consistent with colitis. No evidence of acute appendicitis. Prostate gland is enlarged, the transverse dimension of 5.7 cm. The urinary bladder is underdistended. Diffuse wall thickening urinary bladder, appears mild to moderate, but this is eccentric by underdistention. Atherosclerotic changes abdominal aorta and iliac arteries. IMPRESSION: 1. FINDINGS CONSISTENT WITH COLITIS INVOLVING DESCENDING SIGMOID COLON. COLITIS MAY BE INFECTIOUS, INFLAMMATORY, OR ISCHEMIC. 2. SMALL LEFT LOBE HEPATIC CYST. SMALL HYPERDENSE FOCUS LEFT HEPATIC LOBE, TOO SMALL TO CHARACTERIZE. 3. SMALL HYPODENSE FOCUS RIGHT KIDNEY, TOO SMALL TO CHARACTERIZE. 4. PROSTATOMEGALY. 5. URINARY BLADDER WALL THICKENING. Electronically signed by: Marco Bowman M.D Jeannie Vides NP IM CT PROCEDURES Final Resul t from Last 3 Months or Most Recently Relevant to Health Maintenance Insurance MEDICARE SOLUTIONS [facility] AETNA [facility] ADVANTRA [facility]IC[facility] SOL[facility]IONS [facility] Advance Directives For more information, please contact: [phone] Documents on File Type Date Recorded Patient [employer]ender [employer] Expl anation ADVANCE DIRECTIVE 01/10/2021 6:31 AM * Full Code (Latest Code Status on File) Date Activated Date Inactivated Comments 02/06/2024 11:06 PM 02/11/2024 8:01 PM * Full Code Date Activated Date Inactivated Comments 10/20/2021 7:47 AM 10/20/2021 2:01 PM * Full Code Date Activated Date Inactivated Comments 10/20/2021 7:47 AM 10/20/2021 7:47 AM * Full Code Date Activated Date Inactivated Comments 01/08/2021 12:37 PM 01/09/2021 3:43 PM Healthcare Agents on File Name Relationship Healthcare Agent Relationshi p Communication Edelmira Parker Friend Health Care Agent Care Teams Car Salesman Relationship Specialty Start Date End Date [place], [place] [address] [address] [facility] [place] [address] PCP - General 02/08/19 [place] [id number] [address] [facility] [place] [address] Internal Medicine 02/08/19 Kadeem Davidson LPN Patient Weatherization Coordinator 09/13/17 Lor Harper, RN Registered Nurse 02/01/18 Luz Oseguera, RN Registered Nurse 05/03/18
--- OUTSIDE RECORDS SUMMARY | 2024-09-29 12:03 | XMS_ITS | Referral Summary ---
Author Organization [facility] Address [address] [place] [address] Care Team Providers Care Rug Sample Beveler Name Role Phone Ayan Tse MD Primary Care Provider + Ayan Tse MD Unavailable [phone] Kadeem Davidson LPN Unavailable Unavailable Lor Harper RN Unavailable Unavailab Luz Pope RN Unavailable Kylah vailable Encounters Date Type Department Care Team Description 09/19/2024 Telephone [facility] Gastroenterology at [address] [place] [address] Rekha Garcia 09/04/2024 9:50 AM EMPLOYER RELATIONS REPRESENTATIVE Lab [address] [address] from Last 3 Months Allergies No known active allergies Medications naloxone [...] on 02/29/[address] Akbar located at [facility] 02/07 - 02/10: Regular diet, PT/OT, pain control, pending facility acceptance COPD with acute exacerbation 07/09/2021 Assessment & Plan (07/09/2021 10:13 AM EMPLOYER RELATIONS REPRESENTATIVE): No acute cardiopulmonary disease on chest x-ray, [...] (06/23/2021): Added automatically from request for surgery [id number] Personal history of colonic polyps 06/23/2021 Overview (06/23/2021): Added automatically from request for surgery [id number] Encounter for screening colonoscopy 06/23/2021 Overview (06/23/2021): Added automatically from request for surgery [id number] Neck pain 01/08/2021 Adenomatous polyp of colon [...] patch Assessment & Plan (07/09/2021 10:06 AM EMPLOYER RELATIONS REPRESENTATIVE): Encouraged cessation, is considering attempting to quit [...] ia and fibula, initial encounter 02/06/2024 02/07/2024 Immunizations Name Administration Dates Next Due Tdap 02/06/2024,02/08/2019 Social History Tobacco Use Types Packs/Day Years Used Date Smoking Tobacco: Every Day Cigarettes 2 56.1 Started: 1967 Smokeless Tobacco: Never Tobacco Cessation:Ready to Q uit: No; Counseling Given: No Alcohol Use Standard Drinks/Week Comments Yes 24 (1 standard drink = 0.6 oz pu re alcohol) fridays and saturdays [facility] Utilities Answer Date Recorded In the past 12 months has [facility] [employer], oil, or water [employer] threatened to shut off services in your [...] week 02/07/2024 How often do you attend [facility] or spiritism services? 1 to 4 times per year 02/07/2024 Do you belong to any clubs o r organizations such as advent groups, unions, fraternal or athletic groups, or [...] medical care, and heating? Somewhat hard 02/07/2024 [facility] - Occupational Stress Questionnaire Answer Date Recorded [...] any time in the past 12 m ont, were you homeless or living in a retirement (including now)? No 02/07/2024 Personal Safety Answer Date Recorded Have you ever been in or are you currently in a harmful physical or emotional relationship or is someone making you feel afraid or unsafe? Denies 02/07/2024 Sex and Gender Information Value Date Recorded Sex Assigned at Not on file Legal Sex Male 12:54 AM EMPLOYER RELATIONS REPRESENTATIVE Gender Identity Not on file Sexual Orientation Not on file Last Filed Vital Signs Vital Sign Reading [...] Description 04/03/2025 9:30 AM CDT Hospital Encounter [address] [address] Fran Guerrier MD [address] [place] [address] [place] [address] 04/03/2025 9:30 AM CDT - 04/03/2025 10:00 AM CDT Surgery [address] [address] Fran Guerrier MD [address] [facility] [address] GINNY [address] [place] [address] COLONOSCOPY Scheduled Procedures Name Priority Associated Diagnoses Date/Ti nh COLONOSCOPY Encounter for screening colonoscopy History of colonic polyps Family history of colon cancer 04/03/2025 9:30 AM CDT Medical Devices Implanted Type Area Physician Anesthesiologist Device Identifier Shelf Expiration Date Model / Serial / Lot Plate Right: Mandible Bb Left: Cheek Synthes Nail Im Tibial Ti Tn Advanced [id number] 04.043.135s - [id number] Implanted:Qty: 1 on 02/07/2024 by Jayden Akbar MD at [facility] Right: Tibia Synthes I 05/22/2033 04.043. 135 S / / [id number] Synthes Screw Bone Locking Cannulated Femoral Threaded 5.0x32mm 04.045.332s - [id number] Implanted:Qty: 1 on 02/07/2024 by Jayden Akbar MD at [facility] Right: Tibia Synthes I 04.045. 332 S / / Synthes Screw Locking Threaded 5.0x38mm 04.045.338s - [id number] Implanted:Qty: 1 on 02/07/2024 by Jayden Akbar MD at [facility] Right: Tibia Synthes I 04.045. 338 S / / Synthes Screw Bone Locking Cannulated Femoral Proximal Full Thread Light Green 5.0x36mm Titanium 04.045.036 - [id number] Implanted:Qty: 1 on 02/07/2024 by Jayden Akbar MD at [facility] Right: Tibia Synthes I 04.045. 036 / / Synthes Screw Bone Locking Cannulated Femoral Threaded 5.0x36mm 04.045.336s - [id number] Implanted:Qty: 1 on 02/07/2024 by Jayden Akbar MD at [facility] Right: Tibia Synthes I 04.045. 336 S / / Synthes Screw Locking Threaded 5.0x68mm 04.045.368s - [id number] Implanted:Qty: 1 on 02/07/2024 by Jayden Akbar MD at [facility] Right: Tibia Synthes I 04.045. 368 S / / Procedures Procedure Name Priority Date/Time Associated Diagnosis Comments EGFR Routine 09/04/2024 10:06 AM EMPLOYER RELATIONS REPRESENTATIVE DIFFERENTIAL AUTO Routine 09/04/2024 10: 06 AM EMPLOYER RELATIONS REPRESENTATIVE LIPID PANEL Routine 09/04/2024 10:06 AM EMPLOYER RELATIONS REPRESENTATIVE COMPREHENSIVE METABOLIC PANEL Routine 09/04/2024 10:06 AM EMPLOYER RELATIONS REPRESENTATIVE TESTOSTERONE, TOTAL AND FREE, SERUM Routine 09/04/2024 10:06 AM EMPLOYER RELATIONS REPRESENTATIVE CBC WITH AUTO DIFFERENTIAL Routine 09/04/2024 10:06 AM EMPLOYER RELATIONS REPRESENTATIVE VITAMIN D 25 HYDROXY Routine 09/04/2024 10:06 AM EMPLOYER RELATIONS REPRESENTATIVE TSH Routine 09/04/2024 10:06 AM EMPLOYER RELATIONS REPRESENTATIVE PSA SCREEN Routine 09/04/2024 10:06 AM EMPLOYER RELATIONS REPRESENTATIVE URINALYSIS AND REFLEX TO MICROSCOPIC AND CULTURE Routine 09/04/2024 10:06 AM EMPLOYER RELATIONS REPRESENTATIVE CT LUNG CANCER SCREENING Schedule Routine, Read Routine (OP Routine) 09/16/2023 1:08 PM EMPLOYER RELATIONS REPRESENTATIVE Personal history of nicotine dependence COLONOSCOPY 10/20/2021 8:42 AM EMPLOYER RELATIONS REPRESENTATIVE CT ABDOMEN PELVIS W CONTRAST ED 06/04/2018 12:21 PM CDT from Last 3 Months or Most Recently Relevant to Health Maintenance Results * eGFR (09/04/2024 10:06 AM EMPLOYER RELATIONS REPRESENTATIVE) eGFR >90 >=60 mL/min/1. 73 m2 Comment: [...] reviewed 2021. Blood 09/04/2024 10:0 6 AM EMPLOYER RELATIONS REPRESENTATIVE 09/04/2024 10:13 AM EMPLOYER RELATIONS REPRESENTATIVE us Ayan Tse MD LAB BLOOD ORDERABLES Fin al Result [facility] ([place] 1 [facility] Department [place] [address] * Differential, auto (09/04/2024 10:06 AM EMPLOYER RELATIONS REPRESENTATIVE) Neutrophil abs 3.7 1.5 - 6.5 K/cumm [...] revised on 2017. Monocyte pct 7.7 % [facility] ([place]) Comment: Interpretive Data Percent cell [...] on 2017. Blood 09/04/2024 10:0 6 AM EMPLOYER RELATIONS REPRESENTATIVE 09/04/2024 10:13 AM EMPLOYER RELATIONS REPRESENTATIVE us Ayan Tse MD LAB BLOOD ORDERABLES Fin al Result [facility] ([place]) 1 [facility] Department [place] [address] * PSA screen (09/04/2024 10:06 AM EMPLOYER RELATIONS REPRESENTATIVE) PSA-Total 2.28 <=5.40 ng/mL Comment: Interpretive Data [...] revised 21. Blood 09/04/2024 10:0 6 AM EMPLOYER RELATIONS REPRESENTATIVE 09/04/2024 10:13 AM EMPLOYER RELATIONS REPRESENTATIVE us Ayan Tse MD LAB BLOOD ORDERABLES Fin al Result [facility] ([place]) 1 [facility] Department [place] [address] * (ABNORMAL) Urinalysis reflex to microscopic and culture Urine (09/04/2024 10:06 AM EMPLOYER RELATIONS REPRESENTATIVE) Color, ur Yellow Yellow Clarity, ur Clear [...] tendency for uric acid stone formation. Source: [facility] Current Interpretive Data was last revised on [...] [facility] ([place]) Urine 09/04/2024 10:0 6 AM EMPLOYER RELATIONS REPRESENTATIVE 09/04/2024 10:46 AM EMPLOYER RELATIONS REPRESENTATIVE us Ayan Tse MD LAB MICROBIOLOGY - GENER AL ORDERABLES Final Result [facility] ([place]) 1 [facility] Department [place] [address] * CBC with auto differential (09/04/2024 10:06 AM EMPLOYER RELATIONS REPRESENTATIVE) WBC 7.2 3.8 - 9.9 K/cumm Hgb [...] [facility] ([place]) Blood 09/04/2024 10:0 6 AM EMPLOYER RELATIONS REPRESENTATIVE 09/04/2024 10:13 AM EMPLOYER RELATIONS REPRESENTATIVE us Ayan Tse MD LAB BLOOD ORDERABLES Fin al Result Performing Organization Address City/[facility]/ZIP Co de Phone Number [facility] ([place]) 1 [facility] [employer] [place] [address] * (ABNORMAL) Vitamin D 25 hydroxy (09/04/2024 10:06 AM EMPLOYER RELATIONS REPRESENTATIVE) Vitamin D 25-OH 89(H) 30 - 80 ng/mL Blood 09/04/2024 10:0 6 AM EMPLOYER RELATIONS REPRESENTATIVE 09/04/2024 10:13 AM EMPLOYER RELATIONS REPRESENTATIVE us Ayan Tse MD LAB BLOOD ORDERABLES Fin al Result Performing Organization Address City/[facility]/ZIP Co de Phone Number [facility] ([place]) 1 [facility] [place] [employer] [place] [address] * Testosterone, Total and Free, Serum (09/04/2024 10:06 AM EMPLOYER RELATIONS REPRESENTATIVE) Testosterone 816 240 - 950 ng/dL [place] [facility] Comment: ADDITIONAL INFORMATION Testing performed by Liquid Chromatography-Tandem Mass Spectrometry (LC-MS/MS). This test was developed and its performance characteristics determined by [facility] in a manner consistent with CLIA requirements. This test has not been cleared or approved by the U.S. Food and Drug Administration. Test Performed by: [facility] - [address] [address] Med Asst: Kandace Nguyen Ph.D.; CLIA# [id number] Testosterone, free 11.4 3.47 - 13.0 ng/dL [facility] ([place]) Comment: ADDITIONAL INFORMATION This test was developed and its performance characteristics determined by [facility] in a manner consistent with CLIA requirements. This test has not been cleared or approved by the U.S. Food and Drug Administration. Blood 09/04/2024 10:0 6 AM EMPLOYER RELATIONS REPRESENTATIVE 09/04/2024 10:13 AM EMPLOYER RELATIONS REPRESENTATIVE Narrative [facility] ([place]) - 09/09/2024 3:44 PM EMPLOYER RELATIONS REPRESENTATIVE [phone] us Ayan Tse MD LAB BLOOD ORDERABLES Fin al Result [facility] ([place]) 1 [facility] [place] [address] [place] [facility] * (ABNORMAL) TSH (09/04/2024 10:06 AM EMPLOYER RELATIONS REPRESENTATIVE) Thyroid Stimulating Hormone 4.75(H) 0.30 - 4.20 mcIUnit/mL Blood 09/04/2024 10:0 6 AM EMPLOYER RELATIONS REPRESENTATIVE 09/04/2024 10:13 AM EMPLOYER RELATIONS REPRESENTATIVE us Ayan Tse MD LAB BLOOD ORDERABLES Fin al Result [facility] ([place]) 1 [facility] Department [place] [address] * (ABNORMAL) Lipid panel (09/04/2024 10:06 AM EMPLOYER RELATIONS REPRESENTATIVE) Cholesterol 165 30 - 199 mg/dL Comment: [...] revised on 2018. Triglycerides 98 <=149 mg/dL [facility] ([place]) Comment: Interpretive Data Ages < or [...] 3. Coy Mendoza et al. MARIANO Cardiol. 2019December 21;5(5):540-548. doi: 10.1001/jamacardio.2020.0013 Current Interpretive Data was [...] last revised on 2018. Chol/HDL ratio 5 [facility] Brad [facility] ([place]) Blood 09/04/2024 10:0 6 AM EMPLOYER RELATIONS REPRESENTATIVE 09/04/2024 10:13 AM EMPLOYER RELATIONS REPRESENTATIVE us Ayan Tse MD LAB BLOOD ORDERABLES Tex al Result ERA [facility] ([place]) 1 [facility] Department [place] [address] * (ABNORMAL) Comprehensive metabolic panel (09/04/2024 10:06 AM EMPLOYER RELATIONS REPRESENTATIVE) Sodium 141 135 - 145 mmol/L Potassium, [...] classification and Diagnosis of Diabetes Diabetes Care 2021; 46: S19-S40. Current interpretive data was last [...] [facility] ([place]) Blood 09/04/2024 10:0 6 AM EMPLOYER RELATIONS REPRESENTATIVE 09/04/2024 10:13 AM EMPLOYER RELATIONS REPRESENTATIVE us Ayan Tse MD LAB BLOOD ORDERABLES Fin al Result [facility] [place]) 1 [facility] Department [place] [address] * CT Lung Cancer Screening (09/16/2023 1:08 PM EMPLOYER RELATIONS REPRESENTATIVE) Anatomical Region Laterality Modality Chest N/A Computed Tomogra phy 09/16/2023 5:27 PM EMPLOYER RELATIONS REPRESENTATIVE Narrative 09/16/2023 5:33 PM EMPLOYER RELATIONS REPRESENTATIVE EXAM DESCRIPTION: Lung cancer screening CT REASON [...] COMPARISON: 08/31/2022 FINDINGS: SMOKING RELATED LUNG DISEASE: [id number] emphysema. LUNG NODULES: 1. Unchanged 5 mm [...] Flaquito Wilson M.D. KN: EDITA Report ID: [id number] Reading Location: [id number] Procedure Note Flaquito Wilson MD - 09/16/2023 [...] COMPARISON: 08/31/2022 FINDINGS: SMOKING RELATED LUNG DISEASE: [id number]-[id number] emphysema. LUNG NODULES: 1. Unchanged 5 mm [...] Flaquito Wilson M.D. KN: EDITA Report ID: [id number] Reading Location: [id number] Ayan Tse MD IMG CT PROCEDURES Final Result * COLONOSCOPY (10/20/2021 8:42 AM EMPLOYER RELATIONS REPRESENTATIVE) Anatomical Region Laterality Modality Other Narrative Procedure Note Fran Guerrier MD - 10/20/2021 8:[address] [facility] Patient Name: Vicente Lr Procedure Date: 10/20/2021 8:42 AM Date of : 1955 Admit Type: Outpatient Age: 66 Gender: Male Attending MD: Fran Guerrier M.D. Room: [facility] ENDOSCOPY ROOM 1 Note Status: Finalized Patient [...] passed under direct vision.The Pediatric Colonoscope [id number] was introduced through the anus and advanced [...] 8:42 AM Procedure Code(s): --- Professional --- 65637, Colonoscopy, flexible; with biopsy, single or multiple Diagnosis Code(s): --- Professional --- Z80.0, Family history of malignant neoplasm of digestive organs Z86.010, Personal history of colonic polyps K64.8, Other hemorrhoids D12.3, Benign neoplasm of transverse colon (hepatic flexure orsplenic flexure) D12.5, Benign neoplasm of sigmoid colon D12.4, Benign neoplasm of descending colon CPT copyright 2020 [employer] [place] [employer]. All rights reserved. The codes documented in this report are preliminary and upon computer language coder reviewmay be revised to meet current compliance requirements. Recognized by the [place] [employer] for Gastrointestinal End[employer] for promoting quality [...] by: Marco Bowman M.D Jeannie Vides NP IMG CT PROCEDURES Final Resul t from Last 3 Months or Most Recently Relevant to Health Maintenance Insurance [facility]IC[facility] MED[facility] Address: [address] [address] [place] [address] [facility] MEDICARE [facility] Advance Directives For more information, please contact: [phone] Documents on File Type Date Recorded Patient In Mold Coater Expl anation ADVANCE DIRECTIVE 01/10/2021 6:31 AM [...] Parker Friend Health Care Agent Care Teams Rug Sample Beveler Relationship Specialty [place] [address] [facility] [address] [place] [address] PCP - General 02/08/19 [place] [address] [facility] [address] [place] [address] Internal Medicine 02/08/19 Kadeem Davidson LPN Patient Photogrammetric Surveyor 09/13/17 Lor Harper, RN Registered Nurse 02/01/18 Luz Oseguera, RN Registered Nurse 05/03/18
--- OUTSIDE RECORDS SUMMARY | 2024-09-29 12:04 | XMS_ITS | Data Portability ---
Author Organization [facility] Address [address] [place] [address] Assessment No assessment recorded. Plan of Treatment Reminders Order Date Submit Date Provider Last Modified By Organization Details Last Modified Time Details Appointments None recorded . Lab CMP, serum or plasma 2014 015 [facility], [address] [place] [address], [facility] [address], [place], [address], 5 07:27:25 CBC 2014 015 [facility], [address] [place] [address], [facility] [address], [place], [address], 5 07:27:24 PSA, serum or plasma 2015 016 HARDEEP [facility], [address] [place] [address], [facility] [address], [place], [address], 6 07:24:34 CMP, serum or plasma 2015 016 [facility], [address] [place] [address], [place] [address], [place], [address], 6 12:25:30 lipid panel, serum 2015 016 [facility], [address] [place] [address], [facility] [address], [place], [address], 6 12:25:30 Referral None recorded . Procedures None recorded . Surgeries None recorded . Imaging CT, chest - Last CT chest was done on 03/17/14 showed stable noncalci fied 7 MM right lower lobe subpleur al pulmonar y nodule. 2015 [address] [facility], [address] [facility] [place], [address], 6 10:11:05 electrom yogram/n erve conducti on study - Tingling numbness of the b/l upper extremit ies. 2015 [email or web address] [facility], [address] [facility] [place], [address], 6 16:50:00 Medication Orders Symbicor t 160 mcg-4.5 mcg/actu ation HFA aerosol inhaler 2014 015 [email or web address] Not available 5 12:18:01 hydrocod one 7.5 mg-aceta minophen 325 mg tablet 2014 015 kkunche Not available 5 15:23:52 gabapent in 300 mg capsule 2014 015 [email or web address] Not available 6 14:30:31 amlodipi ne 5 mg tablet 2014 015 kkunche Not available 5 15:23:52 Symbicor t 160 mcg-4.5 mcg/actu ation HFA aerosol inhaler 2014 015 kkunche Not available 5 15:23:52 Combiven t Respimat 20 mcg-100 mcg/actu ation solution for inhalati on 2014 015 kkunche Not available 5 15:23:52 hydrocod one 7.5 mg-aceta minophen 325 mg tablet 2015 016 kkunche Not available 6 15:20:40 gabapent in 300 mg capsule 2015 016 kkunche Not available 6 12:01:29 amlodipi ne 5 mg tablet 2015 016 kkunche Not available 6 15:20:40 Patient TargetsNo targets recorded. Patient Instructions Encounter Date Encounter Id Patient Instructions Last Modified By Organization Details Last Modified Time 01/24/2015 [id number] neck pain: care instructions kkunche Not available 01/24/2015 15:39:22 learning about high blood pressure [email or web address] Not available 01/24/2015 16:08:27 chronic obstructive pulmonary disease (COPD): care instructions kkunche Not available 01/24/2015 15:39:22 learning about copd and how to prevent lung infections kkunche Not available 01/24/2015 15:39:22 05/20/2015 [id number] neck pain: care instructions kkunche Not available 05/20/2015 15:23:52 learning about high blood pressure kkunche Not available 05/20/2015 15:23:52 chronic obstructive pulmonary disease (COPD): care instructions kkunche Not available 05/20/2015 15:23:52 learning about copd and how to prevent lung infections kkunche Not available 05/20/2015 15:23:52 Patient is not depressed any more and he is not taking the Citalopram. kkunche Not available 05/20/2015 15:23:52 09/23/2015 [id number] neck pain: care instructions kkunche Not available 09/23/2015 15:20:40 tetanus and diphtheria booster: care instructions [email or web address] Not available 09/23/2015 16:50:38 chronic obstructive pulmonary disease (COPD): care instructions kkunche Not available 09/23/2015 15:20:40 learning about copd and how to prevent lung infections kkunche Not available 09/23/2015 15:20:40 learning about high blood pressure kkunche Not available 09/23/2015 15:20:40 10/24/2015 [id number] learning about high blood pressure [email or web address] Not available 10/29/2015 10:32:00 01/06/2016 [id number] Advised patient that we do not prescribe Medical marijuana here. [email or web address] Not available 01/06/2016 12:25:00 Reason for Referral None Reported. Results Created Date Observation Date Name Description Value Unit Range Abnormal Flag Note LastModifiedBy Organization Detail LastModifiedTime 07/24/20 15 07/25/2015 CBC WBC 8.2 x10e3 /uL 3.4-10 .8 Not Available [facility] ([facility]) [address] [facility] [place], [address], 07/26/2015 07:27:24 07/24/20 15 07/25/2015 CBC RBC 4.69 x10e6 /uL 4.14-5 .80 Not Available [facility] ([facility]) [address] [facility] [place], [address], 07/26/2015 07:27:24 07/24/20 15 07/25/2015 CBC hemoglobin 16.0 g/dL 12.6-1 7.7 Not Available [facility] ([facility]) [address] [facility] [place], [address], 07/26/2015 07:27:24 07/24/20 15 07/25/2015 CBC hematocrit 45.6 % 37.5-5 1.0 Not Available [facility] ([facility]) [address] [facility], [place], [address], 07/26/2015 07:27:24 07/24/20 15 07/25/2015 CBC MCV 97 fL 79-97 Not Available [facility] ([facility]) [address] [facility] [place], [address], 07/26/2015 07:27:24 07/24/20 15 07/25/2015 CBC MCH 34.1 pg 26.6-3 3.0 above high normal Not Available [facility] ([facility]) [address] [facility] [place], [address], 07/26/2015 07:27:24 07/24/20 15 07/25/2015 CBC MCHC 35.1 g/dL 31.5-3 5.7 Not Available [facility] ([facility]) [address] [facility] [place], [address], 07/26/2015 07:27:24 07/24/20 15 07/25/2015 CBC RDW 13.9 % 12.3-1 5.4 Not Available [facility] ([facility]) [address] [facility], [place], [address], 07/26/2015 07:27:24 07/24/20 15 07/25/2015 CBC platelets 206 x10e3 /uL 150-37 9 Not Available [facility] ([facility]) [address] [facility] [place], [address], 07/26/2015 07:27:24 07/24/20 15 07/25/2015 CBC neutrophils 64 % Not Avai lable [facility] ([facility]) [address] [facility] [place], [address], 07/26/2015 07:27:24 07/24/20 15 07/25/2015 CBC lymphs 26 % Not Available [facility] ([facility]) [address] [place], [address], 07/26/2015 07:27:24 07/24/20 15 07/25/2015 CBC monocytes 9 % Not Availa ble [facility] ([facility]) [address] [place], [address], 07/26/2015 07:27:24 07/24/20 15 07/25/2015 CBC eos 1 % Not Available [facility] ([facility]) [address] [place], [address], 07/26/2015 07:27:24 07/24/20 15 07/25/2015 CBC basos 0 % Not Available [facility] ([facility]) [address] [place], [address], 07/26/2015 07:27:24 07/24/20 15 07/25/2015 CBC immature cells [employer]ING [employer]ER Not Available [facility] ([facility]) [address] [place], [address], 07/26/2015 07:27:24 07/24/20 15 07/25/2015 CBC neutrophils (absolute) 5.2 x10e3 /uL 1.4-7. 0 Not Available [facility] ([facility]) [address] [facility] [place], [address], 07/26/2015 07:27:24 07/24/20 15 07/25/2015 CBC lymphs (absolute) 2.1 x10e3 /uL 0.7-3. 1 Not Available [facility] ([facility]) [address] [facility], [place], [address], 07/26/2015 07:27:24 07/24/20 15 07/25/2015 CBC monocytes(ab solute) 0.7 x10e3 /uL 0.1-0. 9 Not Available [facility] ([facility]) [address] [facility], [place], [address], 07/26/2015 07:27:24 07/24/20 15 07/25/2015 CBC eos (absolute) 0.1 x10e3 /uL 0.0-0. 4 Not Available [facility] ([facility]) [address] [facility], [place], [address], 07/26/2015 07:27:24 07/24/20 15 07/25/2015 CBC baso (absolute) 0.0 x10e3 /uL 0.0-0. 2 Not Available [facility] ([facility]) [address] [facility], [place], [address], 07/26/2015 07:27:24 07/24/20 15 07/25/2015 CBC immature granulocytes 0 % Not Available [facility] ([facility]) [address] [facility] [place], [address], 07/26/2015 07:27:24 07/24/20 15 07/25/2015 CBC immature grans (abs) 0.0 x10e3 /uL 0.0-0. 1 Not Available [facility] ([facility]) [address] [place], [address], 07/26/2015 07:27:24 07/24/20 15 07/25/2015 CBC NRBC HE[employer]ING [employer] TE[employer]ER Not Available [facility] (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) [address] [place], [address], 07/26/2015 07:27:24 07/24/20 15 07/26/2015 CMP, serum or plasm a glucose, serum 89 mg/dL 65-99 Not Available [facility] ([facility]) [address] [place], [address], 07/26/2015 07:27:25 07/24/20 15 07/26/2015 CMP, serum or plasm a BUN 10 mg/dL 6-24 Not Available [facility] ([facility]) [address] [place], [address], 07/26/2015 07:27:25 07/24/20 15 07/26/2015 CMP, serum or plasm a creatinine, serum 0.87 mg/dL 0.76-1 .27 Not Available [facility] ([facility]) [address] [place], [address], 07/26/2015 07:27:25 07/24/20 15 07/26/2015 CMP, serum or plasm a eGFR if nonafricn AM 95 mL/mi n/1.7 3 >59 Not Available [facility] ([facility]) [address] [place], [address], 07/26/2015 07:27:25 07/24/20 15 07/26/2015 CMP, serum or plasm a eGFR if africn AM 110 mL/mi n/1.7 3 >59 Not Available [facility] ([facility]) [address] [place], [address], 07/26/2015 07:27:25 07/24/20 15 07/26/2015 CMP, serum or plasm a BUN/creatini ne ratio 11 9-20 Not Available [facility] ([facility]) [address] [place] [address], [place], [address], 07/26/2015 07:27:25 07/24/20 15 07/26/2015 CMP, serum or plasm a sodium, serum 141 mmol/ L 134-14 4 Not Available [facility] ([facility]) [address] [place], [address], 07/26/2015 07:27:25 07/24/20 15 07/26/2015 CMP, serum or plasm a potassium, serum 3.8 mmol/ L 3.5-5. 2 Not Available [facility] ([facility]) [address] [place], [address], 07/26/2015 07:27:25 07/24/20 15 07/26/2015 CMP, serum or plasm a chloride, serum 102 mmol/ L 97-108 Not Available [facility] ([facility]) [address] [place], [address], 07/26/2015 07:27:25 07/24/20 15 07/26/2015 CMP, serum or plasm a carbon dioxide, total 24 mmol/ L 18-29 Not Available [facility] ([facility]) [address] [place], [address], 07/26/2015 07:27:25 07/24/20 15 07/26/2015 CMP, serum or plasm a calcium, serum 8.7 mg/dL 8.7-10 .2 Not Available [facility] ([facility]) [address] [place], [address], 07/26/2015 07:27:25 07/24/20 15 07/26/2015 CMP, serum or plasm a protein, total, serum 6.7 g/dL 6.0-8. 5 Not Available [facility] ([facility]) [address] [facility] [place], [address], 07/26/2015 07:27:25 07/24/20 15 07/26/2015 CMP, serum or plasm a albumin, serum 3.7 g/dL 3.5-5. 5 Not Available [facility] ([facility]) [address] [facility] [place], [address], 07/26/2015 07:27:25 07/24/20 15 07/26/2015 CMP, serum or plasm a globulin, total 3.0 g/dL 1.5-4. 5 Not Available [facility] ([facility]) [address] [facility] [place], [address], 07/26/2015 07:27:25 07/24/20 15 07/26/2015 CMP, serum or plasm a A/G ratio 1.2 1.1-2. 5 Not Available [facility] ([facility]) [address] [facility], [place], [address], 07/26/2015 07:27:25 07/24/20 15 07/26/2015 CMP, serum or plasm a bilirubin, total 0.9 mg/dL 0.0-1. 2 Not Available [facility] ([facility]) [address] [facility], [place], [address], 07/26/2015 07:27:25 07/24/20 15 07/26/2015 CMP, serum or plasm a alkaline phosphatase, S 99 IU/L 39-117 Not Available [facility] ([facility]) [address] [facility] [place], [address], 07/26/2015 07:27:25 07/24/2007/26/2015 CMP, serum or plasm a AST (SGOT) 12 IU/L 0-40 Not Available [facility] ([facility]) [address] [facility] [place], [address], 07/26/2015 07:27:25 07/24/20 15 07/26/2015 CMP, serum or plasm a ALT (SGPT) 8 IU/L 0-44 Not Available [facility] ([facility]) [address] [facility], [place], [address], 07/26/2015 07:27:25 09/23/19 16 09/24/2015 PSA, serum or plasm a prostate specific Ag, serum 2.0 NG/mL 0.0-4. 0 KATHRINE ECLIA METHO DOLOG Y. ACCOR DING TO THE [employer] [facility] [employer] N, SERUM PSA SHOUL D DECRE ASE AND REMAI N AT UNDET ECTAB LE LEVEL S AFTER RADIC AL PROST ATECT MAUREEN. THE AUA DEFIN ES BIOCH EMICA L RECUR RENCE AN INITI AL PSA VALUE 0.2 NG/ML OR GREAT ER FOLLO WED BY A SUBSE QUENT CONFI RMATO RY PSA VALUE 0.2 NG/ML OR GREAT ER. VALUE S OBTAI RHYS WITH DIFFE RENT ASSAY METHO DS OR KITS CANNO T BE USED INTER MIXON AYSHAEduardo . RESUL TS CANNO T BE INTER PRETE D ABSOL [place] NCE OF THE PRESE NCE OR ABSEN CE OF CYNTHIA HICKS SE. Not Available [facility] ([facility]) [address] [facility], [place], [address], 09/24/2015 07:24:34 10/21/19 16 10/22/2015 PSA, serum or plasm a prostate specific Ag, serum 2.3 NG/mL 0.0-4. 0 KATHRINE ECLIA METHO DOLOG Y. ACCOR KAUR TO THE [employer] [facility] N, SERUM PSA SHOUL D DECRE ASE AND REMAI N AT UNDET ECTAB LE LEVEL S AFTER RADIC AL PROST ATECT MAUREEN. THE AUA DEFIN ES BIOCH EMICA L RECUR RENCE AN INITI AL PSA VALUE 0.2 NG/ML OR GREAT ER FOLLO WED BY A SUBSE QUENT CONFI RMATO RY PSA VALUE 0.2 NG/ML OR GREAT ER. VALUE S OBTAI RHYS WITH DIFFE RENT ASSAY METHO DS OR KITS CANNO T BE USED INTER MIXON EABLY . RESUL TS CANNO T BE INTER PRETE D ABSOL [place] NCE OF THE PRESE NCE OR ABSEN CE OF CYNTHIA HICKS SE. Not Available [facility] ([facility]) [address] [facility], [place], [address], 10/22/2015 07:27:06 01/01/20 15 12/27/2014 imagi ng/di agnos tic resul t No observ ation record ed. [email or web address] Not Available 2014 14:43:03 01/17/20 15 12/29/2014 imagi ng/di agnos tic resul t No observ ation record ed. BARCODE Not Available 2014 17:26:59 02/13/20 15 03/17/2014 imagi ng/di agnos tic resul t No observ ation record ed. BARCODE Not Available 2014 09:43:08 11/13/19 16 11/12/2015 CT, chest No observ ation record ed. [email or web address] [address] [place], [address], 11/22/2015 11:40:04 11/15/19 16 11/12/2015 imagi ng/di agnos tic resul t No observ ation record ed. [email or web address] Not Available 2015 11:19:06 11/20/19 16 11/20/2015 x-ray , chest , 2 view No observ ation record ed. [email or web address] [address] [place], [address], 11/22/2015 11:40:05 Result Notes None recorded. Problems Name Problem SNOMED Code Status Onset Date Resolution Date Notes Provider Name and Address Organization Details Recorded Time Neck pain 93501463 Active Omar Chrische null, [place] [facility] 6 12:25:30 Chronic depressio n 076046582 Active Omar Kunche [place] [facility] 5 16:03:13 Essential hypertens ion 34107076 Active Omar Kunche [place] [facility] 6 12:25:30 Dyspnea 844115090 Active Omar Kunche null, DINESH - [facility] 6 17:15:21 Anxiety 28480106 Active Nereida Herringkaylyn DARCI tomas [place] [facility] 5 15:10:21 Herpes zoster 2053647 Completed 01/24/2015 Omar riley, [place] - [facility] 5 15:37:52 Low back pain 311227926 Active diffuse disc bulging and diffuse facet osteoart hritis. 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 Active Nereida Middletonfilomena [facility]AR[facility] tomas null, [place] - [facility] 5 15:10:21 Chronic obstructi ve pulmonary disease 91212789 Active Omar ri[place] [facility] 6 12:25:30 Lumbar hernia 34918956 Active Nereida Herringkaylyn DARCI tomas, [place] - [facility] 5 15:10:21 Solitary nodule of lung 142032736 Active [place] [facility] 6 12:25:30 Alcohol dependenc e 50508658 Active DARCI Maza, [place] - [facility] 5 15:10:21 Depressiv e disorder 48050638 Active [place] [facility] 5 16:11:20 Tobacco user 770372885 Active Omar riley, [place] - [facility] 6 12:25:30 Prostate specific antigen above reference range 910232313 Active Omar Tay [place] [facility] 5 16:03:13 Adenomato us polyp of colon 248859245 Active Omar riley, [place] - [facility] 5 16:11:20 Problem Notes None recorded. Procedures Surgical History Date Name Laterality Status Provider Name and Address Organization Details Recorded Time Eye Surgery completed DARCI Jung MICHAELTK 09/03/2014 15:10:20 Back Surgery completed DARCI Jung MICHAELTK 09/03/2014 15:10:20 Other completed Nereida Guo [place] - [facility] 09/03/2014 15:10:20 Imaging Results Imaging Date Name Status LastModified by Organiz [facility] Details LastModified Time 12/27/2014 imaging/diag nostic result completed Information not available 12/31/2014 14:43:03 12/29/2014 imaging/diag nostic result completed [facility] Information not available 01/16/2015 17:26:59 03/17/2014 imaging/diag nostic result completed [facility] Information not available 02/12/2015 09:43:08 11/12/2015 CT, chest completed [email or web address] [address] [place], [address], 11/22/2015 11:40:04 11/12/2015 imaging/diag nostic result completed Information not available 11/21/2015 11:19:06 11/20/2015 x-ray, chest, 2 view completed [email or web address] [address] [place], [address], 11/22/2015 11:40:05 Procedure Notes None recorded. Medical Equipment None Reported. Allergies No known drug allergies Medications Name Sig Start Date Stop Date Status Note LastModified by Organization Details LastModified Time prednisone 20 mg tablet active Not Available Not Available Not Available amlodipine 5 mg tablet Take 1 tablet every day by oral route. 2015 active Not Available Not Available Not Avai lable citalopram 20 mg tablet Take 1 tablet every day by oral route. active Patient states he is not taking anymore. He quit taking because he was doing good. But now thinks he may need it again. Not Available Not Available Not Available lorazepam 0.5 mg tablet Take 1 tablet every 8 hours by oral route as needed for 6 days. active Not Available Not Available No t Available hydrocodone 7.5 mg-acetamin ophen 325 mg tablet Take 1 tablet 3 times a day by oral route as needed. 2015 active Not Available Not Available Not Avai lable Advair Diskus 250 mcg-50 mcg/dose powder for inhalation Inhale 1 puff twice a day by inhalatio n route. active Not Available Not Available No t Available nicotine 21 mg/24 hr daily transdermal patch Apply 1 patch every day by transderm al route for 42 days. active Not Available Not Available No t Available gabapentin 300 mg capsule Take 1 capsule 3 times a day by oral route. 2015 active Not Available Not Available Not Avai lable ibuprofen 600 mg tablet Take 1 tablet 4 times a day by oral route as needed. 2014 active Not Available Not Available Not Avai lable Symbicort 160 mcg-4.5 mcg/actuati on HFA aerosol inhaler Inhale 2 puffs twice a day by inhalatio n route. 2014 active Not Available Not Available Not Avai lable Combivent Respimat 20 mcg-100 mcg/actuati on solution for inhalation Inhale 1 puff 4 times a day by inhalatio n route. 2014 active Not Available Not Available Not Avai lable Vitals Date Recorded Respiratory rate Oxygen saturation Oxygen saturation in Arterial blood by Pulse oximetry Body weight Heart rate Body mass index (BMI) Body height Body temperature Systolic blood pressure Diastolic blood pressure Provider Name and Address Organization Details Last Updated DateTime 5 16 /min 97 % 97 % 74149.9 318 g 98 /min 21.9 kg/m2 170.18 cm 97.7 [degF] 140 mm[Hg] 80 mm[Hg] Nereida tomas MA [facility] 5 14:23:29 Date Recorded Respiratory rate Body weight Oxygen saturation Oxygen saturation in Arterial blood by Pulse oximetry Body height Body mass index (BMI) Heart rate Systolic blood pressure Diastolic blood pressure Provider Name and Address Organization Details Last Updated DateTime 5 16 /min 10887.0 62710 g 98 % 98 % 170.18 cm 23 kg/m2 77 /min 136 mm[Hg] 80 mm[Hg] Chelly Araceli [facility] 5 14:34:24 Date Recorded Body temperature Systolic blood pressure Diastolic blood pressure Provider Name and Address Organization Details Last Updated DateTime 05/20/2015 98 [degF] 150 mm[Hg] 80 mm[Hg] Omar Tay [facility] 05/20/2015 15:07:47 Date Recorded Body height Respiratory rate Body temperature Body weight Body mass index (BMI) Oxygen saturation Oxygen saturation in Arterial blood by Pulse oximetry Heart rate Provider Name and Address Organization Details Last Updated DateTime 6 170.18 cm 16 /min 98.3 [degF] 39764.1 1654 g 22.2 kg/m2 98 % 98 % 100 /min Nereida tomas MA [facility] 6 14:30:32 Date Recorded Systolic blood pressure Diastolic blood pressure Provider Name and Address Organization Details Last Updated DateTime 09/23/2015 160 mm[Hg] 100 mm[Hg] Omar Tay [facility] 09/23/2015 15:00:32 Date Recorded Respiratory rate Body weight Body temperature Body mass index (BMI) Heart rate Oxygen saturation Oxygen saturation in Arterial blood by Pulse oximetry Body height Systolic blood pressure Diastolic blood pressure Provider Name and Address Organization Details Last Updated DateTime 6 16 /min 59213.9 318 g 98.2 [degF] 21.9 kg/m2 100 /min 99 % 99 % 170.18 cm 140 mm[Hg] 90 mm[Hg] Nereida tomas MA [facility] 6 11:34:25 Date Recorded Body temperature Body height Body weight Oxygen saturation Oxygen saturation in Arterial blood by Pulse oximetry Heart rate Body mass index (BMI) Respiratory rate Systolic blood pressure Diastolic blood pressure Provider Name and Address Organization Details Last Updated DateTime 6 97.8 [degF] 170.18 cm 40280.3 3943 g 99 % 99 % 82 /min 21.8 kg/m2 16 /min 130 mm[Hg] 80 mm[Hg] Nereida tomas MA [facility] 6 11:42:31 Social History Question Answer Notes LastModified by Organizat ion Details LastModified Time Tobacco Smoking Status Current Every Day Smoker Nereida Guo [place] null, [facility] 09/03/2014 15:10:20 What Is Your Level Of Alcohol Consumption? Moderate Once A Week Information not available 09/03/2014 At What Age Did You Start Smoking Tobacco? 14 Information not available 09/03/2014 How Much Tobacco Do You Smoke? 1 PPD Information not available 09/03/2014 Sex: Unknown Functional Status None recorded. Mental Status None recorded. Family History Relationship Description Onset Age of this Age Resolved Age Notes LastModified by Organization Details LastModified Time Mother Coronary arterioscler osis [email or web address] Not available 12/21 11:42:31 Mother Heart disease [email or web address] Not available 12/21 11:42:31 Brother Carcinoma in situ of colon [email or web address] Not available 12/21 11:42:31 Brother Coronary arterioscler osis cgrandberry Not available 12/21 11:42:31 Brother Carcinoma in situ of prostate [email or web address] Not available 12/21 11:42:31 Brother Leukemia (morphologic abnormality) [email or web address] Not available 0 01/06/2016 11:42:31 Medical History Condition Response Coronary Artery Disease N Other N Atrial Fibrillation N High Blood Pressure N Depression Y COPD Y Blood Clots N Anxiety Disorder Y Muscle, Joint, or Bone Problems N Acid Reflux (GERD) N Cancer N Stroke N Headaches N Kidney or Bladder Problems N Skin Problems N Asthma N Allergies Y Hepatitis N High Cholesterol N Liver Disease N Thyroid Problems N GI Problems N Anemia N Heart Attack ([place]) N Diabetes N Seizures/Epilepsy N Heart Failure N Osteoporosis N Immunizations Vaccine Type Date Status Note Provider Nam e and Address Organization Details Recorded Time pneumococcal polysaccharide PPV23 9 completed Nereida Guo MA [facility] [place] [facility] 09/03/2014 15:10:20 Influenza, split virus, quadrivalent, preservative 5 completed Not Available [facility] 09/09/2019 02:44:53 Tdap 6 completed Not Available [facility] 09/09/2019 02:44:53 Past Encounters Encounter ID Performer Location Encounter Start Date Encounter Closed Date Diagnosis/Indication Diagnosis SNOMED-CT Code Diagnosis ICD10 Code Diagnosis Note [id number] Omar Crabtree (Adult Med) [address] [place] [address] 09/03/2014 14:21:34 09/03/2014 16:07:18 Depressive disorder [id number] start Citalopram 20 mg po daily. Side effects explained. Chronic ob structive pulmonary disease 73393223 Continue combivent. advised to quit smoking. Solitary n odule of lung 711379224 Last CT chest was done on 03/17/14 showed stable noncalcifi ed 7 MM right lower lobe sub pleural pulmonary nodule. repeat the CT chest at next visit. Prostate s pecific antigen above reference range [id number] Patient is following Urologist. Adenomatou s polyp of colon [id number] Colonoscop y was done on 06/04/14. Gastroente rologist recommende d repeat colonoscop y in 2 years. Tobacco user [id number] a dvised patient to quit smoking. [id number] DARCI Jung (Adult Med) [address] [place] [address] 12/04/2014 14:04:12 12/04/2014 16:35:[id number] Cervical spine showed moderate degenerati ve disc disease C3-C4 and C6-C7,mild to moderate spondylosi s anteriorly C3-4 and C7-T1. Patient do not want to go to pain management . Continue Hydrocodon e. Refer to Physical therapy. Solitary n odule of lung 767812301 Last CT chest was done on 03/17/14 showed stable noncalcifi ed 7 MM right lower lobe subpleural pulmonary nodule. repeat the CT chest with contrast. Prostate s pecific antigen above reference range [id number] Patient is not following Urologist. Advised patient to make a f/u ameya with Urologist. Chronic depression 173434661 Non compliant with medication s.advised patient to restart Citalopram . Tobacco user 713965023 a dvised patient to quit smoking. will give prescripti on for Nicotine patches 21 mg daily for 6 weeks. [id number] XIMENA Nugent (Adult Med) [address] [place] [address] 01/24/2015 14:09:52 01/24/2015 15:09:54 Chronic obstructive pulmonary disease 60083013 Patient was admitted to [facility] for Pneumothor x.Treated with chest tube.Still smokes cigarettes .Nicotine patches were prescribed but he continues to smoke. Continue combivent. Add symbicort 160/4.5 mg 2 puffs bid. advised to quit smoking. NON COMPLIANT PATIENT .No showed for last three appointmen ts. Solitary n odule of lung 899112830 Last CT chest was done on 03/17/14 showed stable noncalcifi ed 7 MM right lower lobe subpleural pulmonary nodule. repeat the CT chest with contrast is scheduled on 01/28/[address] Cervical spine showed moderate degenerati ve disc disease C3-C4 and C6-C7,mild to moderate spondylosi s anteriorly C3-4 and C7-T1. Patient is going to do Physical therpay. Continue Hydrocodon e. . Essential hypertension 12840011 Patient said he was started on Amlodipine during the hospitaliz ation. [id number] Chelly Crabtree (Adult Med) [address] [place] [address] 05/20/2015 14:11:11 05/20/2015 15:43:01 Essential hypertension 41813733 Non compliant patient .not taking the Amlodipine . Restart Amlodipine 5 mg po daily Chronic ob structive pulmonary disease 84041689 Continue combivent and symbicort 160/4.5 mg 2 puffs bid. advised to quit smoking. NON COMPLIANT PATIENT .No showed for last three appointmen ts and cancelled the last appointmen t. Neck pain 88174970 CT Cervical spine showed moderate degenerati ve disc disease C3-C4 and C6-C7,mild to moderate spondylosi s anteriorly C3-4 and C7-T1. Patient has no insrence now.Once he got the insurance he will call the office and I refer him to Neurosurge ry/Pain management . Continue Hydrocodon e. . Tobacco user 811214441 a dvised patient to quit smoking. Patient was given Nicotine patches before.sti ll smoking. Solitary n odule of lung 840883354 Last CT chest was done on 03/17/14 showed stable noncalcifi ed 7 MM right lower lobe subpleural pulmonary nodule. repeat the CT chest without contrast was not done because of insurence problems. Influenza vaccine needed [id number] Omar Crabtree (Adult Med) [address] [place] [address] 09/23/2015 14:22:00 09/23/2015 15:38:08 Essential hypertension 29178951 I10 Non compliant patient .not taking the Amlodipine .Patient was advised at the last visit to start taking the Amlodipine but he did not started taking Amlodipine . Restart Amlodipine 5 mg po daily and explaine patient about the side effects of uncontroll ed blood pressure like stroke,kid michelle disease and heart failure Chronic ob structive pulmonary disease 80425069 J44.9 Continue combivent and symbicort 160/4.5 mg 2 puffs bid. advised to quit smoking. Neck pain 21815423 M54.2 CT Cervical spine showed moderate degenerati ve disc disease C3-C4 and C6-C7,mild to moderate spondylosi s anteriorly C3-4 and C7-T1. Continue Hydrocodon e as needed. Solitary n odule of lung 583508700 R91.[address] chest was done on 03/17/14 showed stable noncalcifi ed 7 MM right lower lobe subpleural pulmonary nodule.Chr onic smoker. repeat the CT chest without contrast was not done because of insurance problems. will order CT ches again. Tobacco user 046311563 Z 72.0 advised patient to quit smoking. Screening for malignant neoplasm of prostate 678309349 Z12.5 Administra tion of diphtheria, pertussis, and tetanus vaccine 576072499 Z23 [id number] Omar Crabtree (Adult Med) [address] [place] [address] 10/24/2015 10:56:02 10/29/2015 09:07:48 Paresthesia of upper limb 88378231 R20.2 Will do EMG/NCV to rule out Carpel tunnel syndrome. Essential hypertension 84347956 I10 Blood pressure is improving. Advisede patient to continue same medicatiio ns. Tobacco user 257149971 Z 72.0 advised patient to quit smoking. [id number] Omar Crabtree (Adult Med) [address] [place] [address] 01/06/2016 10:46:30 01/06/2016 12:32:19 Essential hypertension 48475012 I10 Blood pressure well controlled . Advisede patient to continue same medicatiio ns. Chronic ob structive pulmonary disease 46969314 J44.9 Continue combivent and symbicort 160/4.5 mg 2 puffs bid. advised to quit smoking. Neck pain 95023346 M54.2 CT Cervical spine showed moderate degenerati ve disc disease C3-C4 and C6-C7,mild to moderate spondylosi s anteriorly C3-4 and C7-T1. Continue Hydrocodon e as needed. Solitary n odule of lung 632670701 R91.[address] chest was done on 11/12/15 showed stable noncalcifi ed 7 MM nodule right lower lobe. Tobacco user 277108524 Z 72.0 advised patient to quit smoking. Health Concerns Section Related Observation LastModified by Organization Detai ls LastModified Time None Recorded Concern Status LastModified by Organization Details LastModified Time None Recorded Advance Directives Directive None Recorded Payers Encounter Date Sequence Insurance Name Policy Number Policy Cavazos Covered Member ID Cavazos Member ID Guarantor Name 01/24/2015 1 [facility] (MEDICAID HMO) [id number] Vicente Lr [id number] Vicente Lr 05/20/2015 SLIDING FEE SCHEDULE - DISCOUNT Vicente Lr 09/23/2015 1 [place] Vicente Lr [id number] Vicente Lr 09/23/2015 2 [place]IC[place] REPLACEMENT PRIMARY) Vicente Lr [id number] Vicente Lr 10/24/2015 1 [place] Vicente Lr [id number] Vicente Lr 10/24/2015 2 [place]PLACEMENT PRIMARY[place] Vicente Lr [id number] Vicente Lr 01/06/2016 1 [place] Vicente Lr [id number] Vicente Lr 01/06/2016 2 [place]PLACEMENT [place] Vicente Lr [id number] Vicente Lr Notes Date Note Type Note Provider Name and Address Organization Details Recorded Time 6 text/html COPDReported bypatient.Onset/Timing:ch ronic Duration:has noted for years Context:cigarette smoking Associated Symptoms:not coughing up sputum; no cough; no fever; no wheezingHypertension F/UReported bypatient.Associated Symptoms:no dizziness; no lightheadedness; no chest pain; no shortness of breath; no palpitations; no edema; no calf pain with exertion Lifestyle:regular exercise; limiting/avoiding salt Medications:taking medications as directed; no side effects from medication Omar riley [place] [facility] 09/23/2015 15:20:49 6 text/html Generic HPI TemplateReported bypatient.Notes:c/l tingling numbness of the b/l hands and 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.Patiient has chronic neck pain CT Cervical spine showed moderate degenerative disc disease C3-C4 and C6-C7,mild to moderate spondylosis anteriorly C3-4 and C7-T1.Hypertension F/UReported bypatient.Associated Symptoms:no dizziness; no lightheadedness; no chest pain; no shortness of breath; no palpitations; no edema; no calf pain with exertion Lifestyle:not exercising regularly Medications:taking medications as directed DINESH Booth 10/29/2015 00:49:30 6 text/html COPDReported bypatient.Onset/Timing:[facility] Duration:has noted for years Context:cigarette smoking Associated Symptoms:not coughing up sputum; no cough; no fever; no wheezingHypertension F/UReported bypatient.Associated Symptoms:no dizziness; no lightheadedness; no chest pain; no shortness of breath; no palpitations; no edema; no calf pain with exertion Lifestyle:limiting/avoidi ng salt;not exercising regularly Medications:taking medications as directed; no side effects from medication DINESH Booth 01/06/2016 12:25:36
--- OUTSIDE RECORDS SUMMARY | 2024-09-29 12:04 | XMS_ITS | CONTINUITY OF CARE DOCUMENT ---
Author Name florence henriquez Address Unknown Organization [facility] Address [address] [place] [address] Phone [phone] Care Team Providers Care Single Pointed Operator Name Role Phone Medhat Viveros DO Unavailable [phone] KADEEM ASHLEY MD Unavailable KADEEM ASHLEY MD Unavailable [phone] INSURANCE PROVIDERS Payer name Policy type / Coverage type [place] red republic[place] ID UHC MEDICARE COMPLETE O Other [id number]
--- OUTSIDE RECORDS SUMMARY | 2024-09-29 12:05 | XMS_ITS | CONTINUITY OF CARE DOCUMENT ---
Author Name florence hneriquez Address Unknown Organization [facility] Address [address] [place] [address] Phone [phone] Care Team Providers Care Extra Hand Name Role Phone Medhat Viveros DO Unavailable KADEEM ASHLEY MD Unavailable KADEEM ASHLEY MD Unavailable [phone] INSURANCE PROVIDERS Payer name Policy type / Coverage type [place] red alliance party ID UHC MEDICARE COMPLETE O Other [id number]
--- NOTE | 2024-09-29 12:29 | ED.EAR ---
HPI - Ear Problem General Chief complaint: Ear Stated complaint: ears Time Seen by Provider: 09/29/24 12:29 Source: patient Mode of arrival: ambulatory Limitations: no limitations History of Present Illness HPI Narrative: 69-year-old male presents to have his ears irrigated. Patient states that his left hearing aid is not working. Just got them yesterday. Went to infrastructure tech office and was told he had cerumen impacted in his ears. States no one looked at his ear canals at the office. He denies ear pain. All systems reviewed and negative except as noted above. Related Data Home Medications ?Medication ?Instructions ?Recorded ?Confirmed ?Last Taken ?Type alprazolam 0.5 mg tablet 0.4 mg PO Q4-6H PRN Anxiety 05/29/22 05/29/22 Unknown History oxycodone-acetaminophen 10 mg-325 1 tablet PO Q6-8H PRN Pain 05/29/22 05/29/22 Unknown History mg tablet sildenafil 100 mg tablet 100 mg PO DAILY PRN Sexual Activity 05/29/22 05/29/22 Unknown History Allergies Allergy/AdvReac Type Severity Reaction Status Date / Time No Known Allergies Allergy Unverified 09/29/24 12:20 Review of Systems Review of Systems: CONSTITUTIONAL: Denies fever, chills, or sweats. EYES: Denies visual changes, redness, or discharge. ENT: Denies rhinorrhea, congestion, sore throat, or otalgia. CARDIOVASCULAR: Denies chest pain, palpitations, or edema. RESPIRATORY: Denies cough or dyspnea. GASTROINTESTINAL: Denies abdominal pain, nausea, vomiting, or diarrhea. GENITOURINARY: Denies dysuria or hematuria. SKIN: Denies rash or itching. MUSCULOSKELETAL: Denies back pain, joint pain, or myalgia. NEUROLOGIC: Denies headache, numbness, or weakness. PSYCHIATRIC: Denies anxiety or depression. All other systems reviewed are negative, except as documented in HPI. PMFSH Comments At time of signature, agree with nursing past medical, surgical, social and family history. There is no relevant family history pertinent to the presenting complaint. Exam Narrative: GENERAL: This is a well-nourished, well-developed patient, in no apparent distress. HEAD: normocephalic, atraumatic. EYES: PERRL. Sclera clear/white. Vision is grossly intact. EARS: External ears normal, auditory canals clear and without drainage Or cerumen, TMs normal without perforation. Hearing grossly intact. NOSE: External nose normal NECK: Neck supple, non-tender without lymphadenopathy, masses or thyromegaly. CARDIOVASCULAR: Regular rate and rhythm without murmurs, gallops, or rubs. RESPIRATORY: Clear to auscultation. Breath sounds equal bilaterally. No wheezes, rales, or rhonchi. SKIN: warm, Dry, intact with no suspicious lesions or rash, good texture and turgor. NEURO: awake, alert, and oriented to person, place and time. There were no obvious focal neurologic abnormalities. EXTREMITIES: No joint tenderness, effusion, or edema noted. Course Course Level of Care: Express Care Visit Vital Signs Vital signs: Vital Signs Temperature 36.7 C 09/29/24 11:45 Pulse Rate 72 09/29/24 11:45 Respiratory Rate 16 09/29/24 11:45 Blood Pressure 141/85 H 09/29/24 11:45 Pulse Oximetry 100 09/29/24 11:45 Oxygen Delivery Room Air 09/29/24 11:45 Temperature 36.7 C 09/29/24 11:45 Pulse Rate 72 09/29/24 11:45 Respiratory Rate 16 09/29/24 11:45 Blood Pressure 141/85 H 09/29/24 11:45 Pulse Oximetry 100 09/29/24 11:45 Oxygen Delivery Room Air 09/29/24 11:45 reviewed Medical Decision Making MDM Narrative Medical decision making narrative: no cerumen noted to patient's ear canals. Recommend he follow-up with his infrastructure tech to further evaluate why his hearing aids are not working. Please be advised this is a medical document. It is intended for nyfb-gu-wczn communication. It is written in medical language and may contain unfamiliar abbreviations or verbiage. Medical documents are intended to carry relevant information, facts as evident, and the clinical opinion of the practitioner at the time of the encounter. This report may have been done utilizing a voice recognition system. Attempts have been made to correct errors. However, there may be uncorrected grammatical, spelling, and recognition errors present. The file time of this note does not necessarily represent the time of service. Vital Signs Vital Signs: Vital Signs Temperature 36.7 C 09/29/24 11:45 Pulse Rate 72 09/29/24 11:45 Respiratory Rate 16 09/29/24 11:45 Blood Pressure 141/85 H 09/29/24 11:45 Pulse Oximetry 100 09/29/24 11:45 Oxygen Delivery Room Air 09/29/24 11:45 Temperature 36.7 C 09/29/24 11:45 Pulse Rate 72 09/29/24 11:45 Respiratory Rate 16 09/29/24 11:45 Blood Pressure 141/85 H 09/29/24 11:45 Pulse Oximetry 100 09/29/24 11:45 Oxygen Delivery Room Air 09/29/24 11:45 Discharge Plan Discharge Clinical Impression: Normal ear exam Patient Disposition: Home, Self-Care Condition: Stable Additional Instructions: There is no cerumen to either of your ear canals that would cause issues with your hearing aids. 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 Patient Language: Slovak Prescriptions: No Action sildenafil 100 mg tablet 100 mg PO DAILY PRN (Reason: Sexual Activity) alprazolam 0.5 mg tablet 0.4 mg PO Q4-6H PRN (Reason: Anxiety) oxycodone-acetaminophen 10-325 mg tablet 1 tablet PO Q6-8H PRN (Reason: Pain) Follow-up/Referrals: Dedrick,Ayan Duncan MD [Primary Care Provider] - Time of Disposition: 12:35
== END 2024-09-29 12:32 | disposition home or self-care (01) ==
PROVIDERS: Emergency Provider Nurse Practitioner Family; PCP Internal Medicine Geriatric Medicine
DX: Z71.1 Person with feared health complaint in whom no diagnosis is made (principal); F41.9 Anxiety disorder, unspecified
CPT/HCPCS: 99211; G0463